=== PATIENT | male | born 1975 | race Two or more races ===

== ENCOUNTER 2018-05-10 12:00 | Inpatient (IN) | payer OTHER ==
[2018-05-10 12:15] VITALS: BMI 24.0
--- NOTE | 2018-05-10 14:23 | HP ---
COWS - Scale Resting Pulse: 0= [place] 80 or Below Sweatin= Chills/Flushing Restless Observation: 1= Difficult to Sit Still Pupil Size: 1= Pupils >than Normal Bone or Joint Aches: 2= Severe Diffuse Aches Runny Nose/ Eye Tearin= Runny Nose/Eyes GI Upset > 30mins: 2= Nausea/Diarrhea Tremor Observation: 2= Slight Tremor Visible Yawning Observation: 2= >3x During Session Anxiety or Irritability: 2=Irritable/Anxious Goose Flesh Skin: 0=Smooth Skin COWS Score: 15 CIWA Score - Admission Criteria OASAS Guidelines: Admission for Medically Managed Detox: Requires at least one of the followin. CIWA greater than 12 2. Seizures within the past 24 hours 3. Delirium tremens within the past 24 hours 4. Hallucinations within the past 24 hours 5. Acute intervention needed for co occurring medical disorder 6. Acute intervention needed for co occurring psychiatric disorder 7. Severe withdrawal that cannot be handled at a lower level of care (continued vomiting, continued diarrhea, abnormal vital signs) requiring intravenous medication and/or fluids 8. Admission ROS [facility] Chief Complaint: i need help to stop using heroin and cocaine Allergies/Adverse Reactions: Allergies Allergy/AdvReac Type Severity Reaction Status Date / Time cefazolin sodium [From [facility]] Allergy Severe Swelling & Verified 05/10/18 13:34 HIVES mustard Allergy Mild Hives Uncoded 05/10/18 13:34 SEAFOOD Allergy Mild Hives Uncoded 05/10/18 13:34 History of Present Illness: this 42 years old male with heroin and cocaine with seeking detox,withdrawal symptom,last detox [facility] in 2013 hepatitis c treated nicotine dependence weight loss longest period of sobriety 4 years and 2 months bipolar disorder,ptsd not on atif medication plan for rehab Exam Limitations: No Limitations - Ebola screening Have you traveled outside of the country in the last 21 days: No Have you been sick,other than usual withdrawal symptoms: No - Review of Systems Constitutional: Chills, Loss of Appetite, Malaise, Changes in sleep, Weakness, Unintentional Wgt. Loss EENT: reports: Tearing, Nose Congestion Respiratory: reports: No Symptoms reported Cardiac: reports: No Symptoms Reported GI: reports: Diarrhea, Nausea, Poor Appetite, Abdominal cramping : reports: No Symptoms Reported Musculoskeletal: reports: No Symptoms Reported, Back Pain, Joint Pain, Muscle Pain Integumentary: reports: Dryness Endocrine: reports: No Symptoms Reported Hematology: reports: No Symptoms Reported Psychiatric: reports: No Sypmtoms Reported, Judgement Intact, Mood/Affect Appropiate, Orientated x3, Anxious, Depressed (insomnia,bipolar disorder) Patient History - Patient Medical History Hx Anemia: No Hx Asthma: No Hx Chronic Obstructive Pulmonary Disease (COPD): No Hx Cancer: No Hx Cardiac Disorders: No Hx Congestive Heart Failure: No Hx Hypertension: No Hx Hypercholesterolemia: No Hx Pacemaker: No HX Cerebrovascular Accident: No Hx Seizures: No Hx Dementia: No Hx Diabetes: No Hx Gastrointestinal Disorders: No Hx Liver Disease: No Hx Genitourinary Disorders: No Hx Sexually Transmitted Disorders: Yes (HERPES) Hx Renal Disease (ESRD): No Hx Thyroid Disease: No Hx Human Immunodeficiency Virus (HIV): No (jan 2012- negative) Hx Hepatitis C: Yes (tx with inf and ribavirin x 6m) Hx Depression: Yes (anxiety,insomnia) Hx Suicide Attempt: No Hx Bipolar Disorder: No Hx Schizophrenia: No Other Medical History: no suicidal,no homicidal - Patient Surgical History Past Surgical History: No Hx Neurologic Surgery: No Hx Cataract Extraction: No Hx Cardiac Surgery: No Hx Lung Surgery: No Hx Breast Surgery: No Hx Breast Biopsy: No Hx Abdominal Surgery: No Hx Appendectomy: No Hx Cholecystectomy: No Hx Genitourinary Surgery: No Hx Section: No Hx Orthopedic Surgery: No Anesthesia Reaction: No - PPD History Previous Implant?: Yes Documented Results: Negative w/proof Implanted On Prior [facility] Admission?: Yes Date: 05/02/12 Results: 0MM PPD to be Administered?: Yes - Smoking Cessation Smoking history: Current every day smoker Have you smoked in the past 12 months: Yes Aproximately how many cigarettes per day: 20 Cigars Per Day: 0 Hx Chewing Tobacco Use: No Initiated information on smoking cessation: Yes 'Breaking Loose' booklet given: 05/10/18 - Substance & Tx. History Hx Alcohol Use: No Hx Substance Use: Yes Substance Use Type: Cocaine, Heroin Hx Substance Use Treatment: Yes (last 2013 [facility]) - Substances Abused Heroin Route: Injection Frequency: Daily Amount used: $50-$60 Age of first use: 22 Date of Last Use: 05/09/18 Cocaine Route: Injection Frequency: 3-6 times per week Amount used: $40 Age of first use: 14 Date of Last Use: 05/06/18 Family Disease History - Family Disease History Family Disease History: Other: Father (dsa,alcohol,), Mother (dsa) Admission Physical Exam [facility] - Vital Signs Vital Signs: Vital Signs - 24 hr 05/10/18 12:13 Temperature 97.7 F Pulse Rate 64 Respiratory 18 Rate Blood Pressure 131/78 - Physical General Appearance: Yes: Moderate Distress, Tremorous, Irritable, Sweating, Anxious HEENTM: Yes: Normal ENT Inspection, Normocephalic, Normal Voice, DAMION, Pharynx Normal, Other (abrasion of scalp) Respiratory: Yes: Lungs Clear, Normal Breath Sounds, No Respiratory Distress Neck: Yes: Within Normal Limits, Supple, Trachea in good position Breast: Yes: Within Normal Limits Cardiology: Yes: Within Normal Limits, Regular Rhythm, Regular Rate, S1, S2 Abdominal: Yes: Within Normal Limits, Normal Bowel Sounds, Non Tender, Soft, Organomegaly Genitourinary: Yes: Within Normal Limits Back: Yes: Muscle Spasm Musculoskeletal: Yes: Back pain, Muscle Pain Extremities: Yes: Tremors 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: 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, Fully Oriented, Alert, Motor Strength 5/5 Integumentary: Yes: Dry, Track Alexander Lymphatic: Yes: Within Normal Limits - Diagnostic (1) Opioid dependence with withdrawal Current Visit: Yes Status: Acute (2) Cocaine dependence Current Visit: No Status: Active (3) Nicotine dependence Current Visit: No Status: Active (4) hep.c Current Visit: No Status: Active (5) Weight loss Current Visit: Yes Status: Acute (6) Abrasion head Current Visit: Yes Status: Acute (7) Insomnia secondary to depression with anxiety Current Visit: Yes Status: Acute (8) Bipolar disorder Current Visit: Yes Status: Acute Cleared for Admission [facility] - Detox or Rehab [facility] Level of Care: Medically Managed Detox Regimen/Protocol: Methadone [facility] Breath Alcohol Content Breath Alcohol Content: 0 Urine Drug Screen - Results Drug Screen Negative: No Urine Drug Screen Results: OPI-Opiates, BZO-Benzodiazepines, FEN-Fentanyl
[2018-05-10] MEDS ORDERED: guaiFENesin/D-METHORPHAN HB 10 ML UNIT-DOSE CUPS PO PRN (14:33)
[2018-05-10] MEDS ORDERED: LOPERAMIDE HCL 2 MG CAPSULE PO PRN (14:33)
[2018-05-10] MEDS ORDERED: MAGNESIUM HYDROX 2400MG/30ML ORAL SUSPENSION 30 ML CUP PO PRN (14:33)
[2018-05-10] MEDS ORDERED: P-EPHED 60MG/TRIPROLIDI 2.5MG TABLET PO PRN (14:33)
[2018-05-10] MEDS ORDERED: MAG HYDROX/AL HYDROX/SIMETH 30 ML UNIT-DOSE CUP PO PRN (14:33)
[2018-05-10] MEDS ORDERED: MAGNESIUM CITRATE 300 ML BOTTLE PO PRN (14:33)
[2018-05-10] MEDS ORDERED: NICOTINE POLACRILEX 2 MG GUM BUC PRN (14:33)
[2018-05-10] MEDS ORDERED: IBUPROFEN 400 MG TABLET (FP) PO PRN (14:33)
[2018-05-10] MEDS ORDERED: MENTHOL/PHENOL 1 EACH UD MM PRN (14:33)
[2018-05-10] MEDS ORDERED: ACETAMINOPHEN 325 MG TABLET (FP) PO PRN (14:33)
[2018-05-10] MEDS ORDERED: hydrOXYzine PAMOATE 25 MG CAPSULE (FP) PO PRN (14:33)
[2018-05-10] MEDS ORDERED: METHADONE HCL 10 MG TABLET (FOR DETOX USE ONLY) PO ONE ×2 (14:45→23:00)
[2018-05-10] MEDS: NICOTINE 21 MG/24 HOURS TOPICAL PATCH TD SCH (15:49)
[2018-05-10] MEDS: MELATONIN 5 MG TABLETS PO PRN (22:45)
[2018-05-10] MEDS: THIAMINE HCL 100 MG TABLET (FP) PO SCH (22:45)
[2018-05-10 23:02] LABS: URINE APPEARANCE CLEAR; URINE BILIRUBIN NEGATIVE (<2.0 mg/dL); URINE COLOR YELLOW; URINE GLUCOSE (UA) NEGATIVE (NEGATIVE); URINE KETONE NEGATIVE (NEGATIVE); URINE LEUK ESTERASE NEGATIVE (NEGATIVE); URINE NITRITE NEGATIVE (NEGATIVE); URINE PROTEIN NEGATIVE (NEGATIVE); URINE UROBILINOGEN NEGATIVE mg/dL (0.2-1.0)
[2018-05-11] MEDS ORDERED: METHADONE HCL 10 MG TABLET (FOR DETOX USE ONLY) PO ONE (10:00)
[2018-05-11] MEDS: diazePAM 5 MG TABLET PO PRN ×2 (10:10→22:08)
[2018-05-11] MEDS: PRENATAL VITAMINS W/ FOLIC ACID TABLET (FP) PO SCH (10:10)
[2018-05-11] MEDS: NICOTINE 21 MG/24 HOURS TOPICAL PATCH TD SCH (10:12)
--- NOTE | 2018-05-11 11:48 | PN ---
BHS COWS - Scale Resting Pulse: 0= [place] 80 or Below Sweatin=Flushed/Facial Moisture Restless Observation: 1= Difficult to Sit Still Pupil Size: 0= Normal to Room Light Bone or Joint Aches: 1= Mild Discomfort Runny Nose/ Eye Tearin= Runny Nose/Eyes GI Upset > 30mins: 0= None Tremor Observation of Outstretched Hands: 2= Slight Tremor Visible Yawning Observation: 2= >3x During Session Anxiety or Irritability: 2=Irritable/Anxious Goose Flesh Skin: 0=Smooth Skin COWS Score: 12 BHS Progress Note (SOAP) Subjective: sweats shakes tired interrupted sleep body aches anxiety Objective: 05/11/18 11:47 Vital Signs Temperature 97.9 F 05/11/18 09:35 Pulse Rate 62 05/11/18 09:35 Respiratory Rate 16 05/11/18 09:35 Blood Pressure 110/64 05/11/18 09:35 O2 Sat by Pulse Oximetry (%) Laboratory Tests 05/10/18 22:00 Urine Color Yellow Urine Appearance Clear Urine pH 5.0 Ur Specific [place] 1.021 Urine Protein Negative Urine Glucose (UA) Negative Urine Ketones Negative Urine Blood Negative Urine Nitrite Negative Urine Bilirubin Negative Urine Urobilinogen Negative Ur Leukocyte Esterase Negative rest of labs pending aaox3 ambulating no acute distress Assessment: 05/11/18 11:48 withdrawal sx Plan: continue detox increase fluids
[2018-05-11 12:02] LABS: HEMATOCRIT 44.8 % (35.4-49); HEMOGLOBIN 14.4 GM/dL (11.7-16.9); MCH 27.7 pg (25.7-33.7); MCHC 32.1 g/dl (32.0-35.9); MEAN CELL VOLUME 86.4 fl (80-96); MEAN PLT VOLUME 10.1 fl (7.5-11.1); PLATELET COUNT 180 K/MM3 (134-434); RBC 5.19 M/mm3 (4.00-5.60); RDW 12.8 % (11.9-15.9); WHITE BLOOD COUNT 5.7 K/mm3 (4.0-10.0)
[2018-05-11 12:07] LABS: ALBUMIN 3.3 g/dl (3.4-5.0); ALK PHOS 72 U/L (45-117); ANION GAP 5 MMOL/L (8-16); BILIRUBIN,TOTAL 0.4 mg/dL (0.2-1); BLOOD UREA NITROGEN 12 mg/dL (7-18); CALCIUM 8.2 mg/dL (8.5-10.1); CHLORIDE 101 mmol/L (98-107); CO2 31 mmol/L (21-32); CREATININE 0.7 mg/dL (0.55-1.3); GLUCOSE,RANDOM 79 mg/dL (74-106); POTASSIUM 4.3 mmol/L (3.5-5.1); SGOT/AST 36 U/L (15-37); SGPT/ALT 51 U/L (13-61); SODIUM 137 mmol/L (136-145); TOT PROT 6.4 g/dl (6.4-8.2)
--- NOTE | 2018-05-11 12:13 | EKG ---
Test Reason : Blood Pressure : / mmHG Vent. Rate : 055 BPM Atrial Rate : 055 BPM P-R Int : 134 ms QRS Dur : 106 ms QT Int : 440 ms P-R-T Axes : 058 042 047 degrees QTc Int : 420 ms SINUS BRADYCARDIA INCOMPLETE RIGHT BUNDLE BRANCH BLOCK BORDERLINE ECG NO PREVIOUS ECGS AVAILABLE Confirmed by HECTOR FARR MD ([id number]) on 05/11/2018 12:13:11 PM Referred By: Confirmed By:HECTOR FARR MD
[2018-05-11] MEDS ORDERED: FLU VACCINE QUAD 60 MCG/0.5 ML (MDV 18-19) IM ONE (13:00)
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
[2018-05-11] MEDS: THIAMINE HCL 100 MG TABLET (FP) PO SCH (22:07)
[2018-05-11] MEDS: MIRTAZAPINE 15 MG TABLET (FP) PO SCH (22:07)
[2018-05-11] MEDS: MELATONIN 5 MG TABLETS PO PRN (22:08)
[2018-05-12] MEDS ORDERED: METHADONE HCL 5 MG TABLET (FOR DETOX USE ONLY) PO ONE (10:00)
--- NOTE | 2018-05-12 10:10 | PN ---
BHS COWS - Scale Resting Pulse: 0= [place] 80 or Below Sweatin= Chills/Flushing Restless Observation: 1= Difficult to Sit Still Pupil Size: 1= Pupils >than Normal Bone or Joint Aches: 2= Severe Diffuse Aches Runny Nose/ Eye Tearin= Nasal Congestion GI Upset > 30mins: 1= Stomach Cramp Tremor Observation of Outstretched Hands: 1= Tremor [place], Not Seen Yawning Observation: 1= 1-2x During Session Anxiety or Irritability: 1=Feels Anxious/Irritable Goose Flesh Skin: 0=Smooth Skin COWS Score: 10 S Progress Note (SOAP) Subjective: sweat tremor body aches muscle cramp joints pain anxiety restlessness Objective: 05/12/18 10:11 Vital Signs Temperature 98.2 F 05/12/18 09:31 Pulse Rate 55 L 05/12/18 09:31 Respiratory Rate 16 05/12/18 09:31 Blood Pressure 114/58 L 05/12/18 09:31 O2 Sat by Pulse Oximetry (%) Laboratory Last Values WBC 5.7 K/mm3 (4.0-10.0) 05/11/18 08:00 RBC 5.19 M/mm3 (4.00-5.60) 05/11/18 08:00 Hgb 14.4 GM/dL (11.7-16.9) 05/11/18 08:00 Hct 44.8 % (35.4-49) D 05/11/18 08:00 MCV 86.4 fl (80-96) 05/11/18 08:00 MCH 27.7 pg (25.7-33.7) 05/11/18 08:00 MCHC 32.1 g/dl (32.0-35.9) 05/11/18 08:00 RDW 12.8 % (11.9-15.9) 05/11/18 08:00 Plt Count 180 K/MM3 (134-434) 05/11/18 08:00 MPV 10.1 fl (7.5-11.1) 05/11/18 08:00 Sodium 137 mmol/L (136-145) 05/11/18 07:50 Potassium 4.3 mmol/L (3.5-5.1) 05/11/18 07:50 Chloride 101 mmol/L (98-107) 05/11/18 07:50 Carbon Dioxide 31 mmol/L (21-32) 05/11/18 07:50 Anion Gap 5 MMOL/L (8-16) L 05/11/18 07:50 BUN 12 mg/dL (7-18) 05/11/18 07:50 Creatinine 0.7 mg/dL (0.55-1.3) 05/11/18 07:50 Creat Clearance w eGFR > 60 (>60) 05/11/18 07:50 Random Glucose 79 mg/dL (74-106) 05/11/18 07:50 Calcium 8.2 mg/dL (8.5-10.1) L 05/11/18 07:50 Total Bilirubin 0.4 mg/dL (0.2-1) 05/11/18 07:50 AST 36 U/L (15-37) 05/11/18 07:50 ALT 51 U/L (13-61) 05/11/18 07:50 Alkaline Phosphatase 72 U/L (45-117) 05/11/18 07:50 Total Protein 6.4 g/dl (6.4-8.2) 05/11/18 07:50 Albumin 3.3 g/dl (3.4-5.0) L 05/11/18 07:50 Urine Color Yellow 05/10/18 22:00 Urine Appearance Clear 05/10/18 22:00 Urine pH 5.0 (5.0-8.0) 05/10/18 22:00 Ur Specific [place] 1.021 (1.010-1.035) 05/10/18 22:00 Urine Protein Negative (NEGATIVE) 05/10/18 22:00 Urine Glucose (UA) Negative (NEGATIVE) 05/10/18 22:00 Urine Ketones Negative (NEGATIVE) 05/10/18 22:00 Urine Blood Negative (NEGATIVE) 05/10/18 22:00 Urine Nitrite Negative (NEGATIVE) 05/10/18 22:00 Urine Bilirubin Negative (<2.0 mg/dL) 05/10/18 22:00 Urine Urobilinogen Negative mg/dL (0.2-1.0) 05/10/18 22:00 Ur Leukocyte Esterase Negative (NEGATIVE) 05/10/18 22:00 RPR Titer Nonreactive (NONREACTIVE) 05/11/18 07:50 HIV 1&2 Antibody Screen Negative 05/11/18 07:50 HIV P24 Antigen Negative 05/11/18 07:50 lab noted Assessment: 05/12/18 10:12 withdrawal sx Plan: continue detox
[2018-05-12] MEDS: NICOTINE 21 MG/24 HOURS TOPICAL PATCH TD SCH (10:21)
[2018-05-12] MEDS: diazePAM 5 MG TABLET PO PRN ×2 (10:21→22:00)
[2018-05-12] MEDS: PRENATAL VITAMINS W/ FOLIC ACID TABLET (FP) PO SCH (10:21)
[2018-05-12] MEDS: THIAMINE HCL 100 MG TABLET (FP) PO SCH (22:00)
[2018-05-12] MEDS: MIRTAZAPINE 15 MG TABLET (FP) PO SCH (22:00)
[2018-05-12] MEDS: MELATONIN 5 MG TABLETS PO PRN (22:01)
[2018-05-13] MEDS ORDERED: METHADONE HCL 5 MG TABLET (FOR DETOX USE ONLY) PO ONE (10:00)
[2018-05-13] MEDS: NICOTINE 21 MG/24 HOURS TOPICAL PATCH TD SCH (10:08)
[2018-05-13] MEDS: PRENATAL VITAMINS W/ FOLIC ACID TABLET (FP) PO SCH (10:08)
--- NOTE | 2018-05-13 10:15 | PN ---
BHS Progress Note (SOAP) Subjective: sweats agitation Objective: 05/14/18 08:47 Vital Signs Temperature 97.5 F L 05/14/18 07:27 Pulse Rate 48 L 05/14/18 07:27 Respiratory Rate 18 05/14/18 07:27 Blood Pressure 126/74 05/14/18 07:27 O2 Sat by Pulse Oximetry (%) aaox3 ambulating no acute distress Assessment: 05/14/18 08:48 mild withdrawal sx Plan: continue detox
[2018-05-13] MEDS: MIRTAZAPINE 15 MG TABLET (FP) PO SCH (22:17)
[2018-05-13] MEDS: THIAMINE HCL 100 MG TABLET (FP) PO SCH (22:17)
[2018-05-13] MEDS: MELATONIN 5 MG TABLETS PO PRN (22:17)
[2018-05-14] MEDS ORDERED: METHADONE HCL 10 MG TABLET (FOR DETOX USE ONLY) PO ONE (10:00)
[2018-05-14] MEDS: NICOTINE 21 MG/24 HOURS TOPICAL PATCH TD SCH (10:30)
[2018-05-14] MEDS: PRENATAL VITAMINS W/ FOLIC ACID TABLET (FP) PO SCH (10:30)
--- NOTE | 2018-05-14 11:02 | PN ---
BHS Progress Note (SOAP) Subjective: feeling good little anxiety Objective: 05/14/18 11:01 Vital Signs Temperature 98.2 F 05/14/18 09:28 Pulse Rate 60 05/14/18 09:28 Respiratory Rate 18 05/14/18 09:28 Blood Pressure 118/59 L 05/14/18 09:28 O2 Sat by Pulse Oximetry (%) aaox3 ambulating no acute distress Assessment: 05/14/18 11:01 mild withdrawal sx Plan: continue detox increase fluids d/c in am
[2018-05-14] MEDS: MELATONIN 5 MG TABLETS PO PRN (22:13)
[2018-05-14] MEDS: MIRTAZAPINE 15 MG TABLET (FP) PO SCH (22:13)
[2018-05-14] MEDS: THIAMINE HCL 100 MG TABLET (FP) PO SCH (22:13)
[2018-05-15] MEDS ORDERED: METHADONE HCL 5 MG TABLET (FOR DETOX USE ONLY) PO ONE (06:00)
[2018-05-15 09:15] VITALS: BP 137/63; PULSE 85; TEMP 98.4
--- NOTE | 2018-05-15 09:16 | DS ---
[facility] Detox Discharge Summary Admission Date: 05/10/18 Discharge Date: 05/15/18 - History Present History: Opioid Dependence - Physical Exam Results Vital Signs: Vital Signs Temperature 98.4 F 05/15/18 09:15 Pulse Rate 85 05/15/18 09:15 Respiratory Rate 18 05/15/18 09:15 Blood Pressure 137/63 05/15/18 09:15 O2 Sat by Pulse Oximetry (%) - Treatment Hospital Course: Detox Protocol Followed, Detoxed Safely, Responded well, Discharged Condition Good, Rehab Referral Accepted - Medication Discharge Medications: Ambulatory Orders NK [No Known Home Medication] 05/10/18 - Diagnosis (1) Cocaine dependence Current Visit: Yes Status: Acute (2) Nicotine dependence Current Visit: Yes Status: Active (3) Bipolar disorder Current Visit: Yes Status: Acute (4) Insomnia secondary to depression with anxiety Current Visit: Yes Status: Acute (5) Opioid dependence with withdrawal Current Visit: Yes Status: Chronic (6) Post traumatic stress disorder (PTSD) Current Visit: Yes Status: Acute (7) Substance induced mood disorder Current Visit: Yes Status: Acute (8) hep.c Current Visit: No Status: Chronic - AMA Did Patient Leave Against Medical Advice: No (referred to [facility])
== END 2018-05-15 09:21 | disposition home or self-care (01) | DRG 773 ==
LOC: YASAS 12:00 → Y6N 14:33
PROVIDERS: ADMIT Neuromusculoskeletal Medicine & OMM; ATTEND Neuromusculoskeletal Medicine & OMM
PROC: HZ2ZZZZ Detoxification Services for Substance Abuse Treatment (ICD-10-PCS; principal; 2018-05-10)
DX: F11.23 Opioid dependence with withdrawal (principal); F14.20 Cocaine dependence, uncomplicated; F17.210 Nicotine dependence, cigarettes, uncomplicated; F31.9 Bipolar disorder, unspecified; F51.05 Insomnia due to other mental disorder; F43.10 Post-traumatic stress disorder, unspecified; F19.24 Other psychoactive substance dependence with psychoactive substance-induced mood disorder; B18.2 Chronic viral hepatitis C; Z88.8 Allergy status to other drugs, medicaments and biological substances; Z91.013 Allergy to seafood; Z87.438 Personal history of other diseases of male genital organs; Z59.0 Homelessness
CPT/HCPCS: 36415; 80053; 81003; 85027; 86593; 87389; 90688; 93005; 93010; G0008

== ENCOUNTER 2019-01-09 13:13 | Inpatient (IN) | payer OTHER | END 2019-01-11 17:45 | disposition home or self-care (01) | LOC: YASAS 13:13 → Y3N 18:16 ==

== ENCOUNTER 2019-04-21 11:25 | Inpatient (IN) | payer OTHER ==
[2019-04-21 12:25] VITALS: BMI 22.8
--- NOTE | 2019-04-21 13:48 | HP ---
COWS - Scale Resting Pulse: 0= [place] 80 or Below Sweatin= Chills/Flushing Restless Observation: 1= Difficult to Sit Still Pupil Size: 0= Normal to Room Light Bone or Joint Aches: 2= Severe Diffuse Aches Runny Nose/ Eye Tearin= Runny Nose/Eyes GI Upset > 30mins: 2= Nausea/Diarrhea Tremor Observation: 2= Slight Tremor Visible Yawning Observation: 2= >3x During Session Anxiety or Irritability: 2=Irritable/Anxious Goose Flesh Skin: 3=Piloerection COWS Score: 17 CIWA Score - Admission Criteria OASAS Guidelines: Admission for Medically Managed Detox: Requires at least one of the followin. CIWA greater than 12 2. Seizures within the past 24 hours 3. Delirium tremens within the past 24 hours 4. Hallucinations within the past 24 hours 5. Acute intervention needed for co occurring medical disorder 6. Acute intervention needed for co occurring psychiatric disorder 7. Severe withdrawal that cannot be handled at a lower level of care (continued vomiting, continued diarrhea, abnormal vital signs) requiring intravenous medication and/or fluids 8. Admitting History and Physical - Primary Care Physician PCP: ([facility] [place]) - Admission Chief Complaint: I am here to detox. History Source: Patient Limitations to Obtaining History: No Limitations - Past Medical History Hepatobiliary: Yes: Hepatitis C Infectious Disease: Yes: STD's (gential herpes no outbreak in two years) Psych: Yes: Depression, Other (PTSD) Musculoskeletal: Yes: Chronic low back pain - Past Surgical History Past Surgical History: Yes: None - Smoking History Smoking history: Current every day smoker Have you smoked in the past 12 months: Yes Aproximately how many cigarettes per day: 20 - Alcohol/Substance Use Hx Alcohol Use: No - Social History Usual Living Arrangement: Yes: Alone Do you think of yourself as: Straight/Heterosexual ADL: Independent History of Recent Travel: No Admission ROS [facility] - HPI Chief Complaint: I am here for detox. Allergies/Adverse Reactions: Allergies Allergy/AdvReac Type Severity Reaction Status Date / Time cefazolin sodium [From [facility]] Allergy Severe Swelling & Verified 04/21/19 12:20 HIVES fish derived Allergy Verified 04/21/19 12:20 shellfish derived Allergy Verified 04/21/19 12:20 mustard Allergy Mild Hives Uncoded 04/21/19 12:20 SEAFOOD Allergy Mild Hives Uncoded 04/21/19 12:20 History of Present Illness: pt is a 43yr old male with a history of heroin and cocaine dependence seeking detox for treatment. Exam Limitations: No Limitations - Ebola screening Have you traveled outside of the country in the last 21 days: No Have you had contact with anyone from an Ebola affected area: No Have you been sick,other than usual withdrawal symptoms: No - Review of Systems Constitutional: Chills, Night Sweats, Changes in sleep EENT: reports: Tearing Respiratory: reports: No Symptoms reported Cardiac: reports: No Symptoms Reported GI: reports: Diarrhea, Poor Appetite, Poor Fluid Intake : reports: No Symptoms Reported Musculoskeletal: reports: Back Pain Integumentary: reports: Flushing, Sweating Neuro: reports: Tingling, Tremors Endocrine: reports: Excessive Sweating, Flushing, Intolerance to Cold, Intolerance to Heat Hematology: reports: No Symptoms Reported Psychiatric: reports: Judgement Intact, Mood/Affect Appropiate, Orientated x3, Agitated, Anxious Other Systems: Reviewed and Negative Patient History - Patient Medical History Hx Anemia: No Hx Asthma: No Hx Chronic Obstructive Pulmonary Disease (COPD): No Hx Cancer: No Hx Cardiac Disorders: No Hx Congestive Heart Failure: No Hx Hypertension: No Hx Hypercholesterolemia: No Hx Pacemaker: No HX Cerebrovascular Accident: No Hx Seizures: No Hx Dementia: No Hx Diabetes: No Hx Gastrointestinal Disorders: No Hx Liver Disease: No Hx Genitourinary Disorders: No Hx Sexually Transmitted Disorders: Yes (HERPES) Hx Renal Disease (ESRD): No Hx Thyroid Disease: No Hx Human Immunodeficiency Virus (HIV): No (jan 2012- negative) Hx Hepatitis C: Yes (tx with inf and ribavirin x 6m) Hx Depression: Yes (not taking medication) Hx Suicide Attempt: No Hx Bipolar Disorder: No Hx Schizophrenia: No Other Medical History: PTSD - Patient Surgical History Past Surgical History: No Hx Neurologic Surgery: No Hx Cataract Extraction: No Hx Cardiac Surgery: No Hx Lung Surgery: No Hx Breast Surgery: No Hx Breast Biopsy: No Hx Abdominal Surgery: No Hx Appendectomy: No Hx Cholecystectomy: No Hx Genitourinary Surgery: No Hx Section: No Hx Orthopedic Surgery: No Anesthesia Reaction: No - PPD History Previous Implant?: Yes Documented Results: Negative w/proof Date: 05/12/18 Results: 0MM PPD to be Administered?: No - Reproductive History Patient is a Female of Child Bearing Age (11 -55 yrs old): No - Smoking Cessation Smoking history: Current every day smoker Have you smoked in the past 12 months: Yes Aproximately how many cigarettes per day: 20 Cigars Per Day: 0 Hx Chewing Tobacco Use: No Initiated information on smoking cessation: Yes 'Breaking Loose' booklet given: 04/21/19 - Substance & Tx. History Hx Alcohol Use: No Hx Substance Use: Yes Substance Use Type: Cocaine, Heroin Hx Substance Use Treatment: Yes (last detox 12/2018) - Substances abused Heroin Substance route: Injection Frequency: Daily Amount used: 15-20 bags Age of first use: 21 Date of last use: 04/21/19 Cocaine Substance route: Injection Frequency: Daily Amount used: $60 Age of first use: 14 Date of last use: 04/20/19 Marijuana/Hashish Substance route: Smoking Frequency: 1-3 times last 30 days Amount used: 2-3 pulls Age of first use: 17 Date of last use: 01/09/19 Admission Physical Exam S - Vital Signs Vital Signs: Vital Signs - 24 hr 04/21/19 12:22 Temperature 97.3 F L Pulse Rate 50 L Respiratory 18 Rate Blood Pressure 103/63 - Physical General Appearance: Yes: Appropriately Dressed, Moderate Distress, Tremorous, Irritable, Sweating, Anxious HEENTM: Yes: Hearing grossly Normal, Normal Voice, Nasal Congestion, Rhinorrhea Respiratory: Yes: Lungs Clear, Normal Breath Sounds, No Respiratory Distress Neck: Yes: No masses,lesions,Nodules Breast: Yes: Within Normal Limits Cardiology: Yes: Regular Rhythm, Regular Rate, S1, S2, Bradycardia Abdominal: Yes: Normal Bowel Sounds, Non Tender, Soft, Increased Bowel Sounds Genitourinary: Yes: Within Normal Limits Back: Yes: Normal Inspection Musculoskeletal: Yes: full range of Motion, Back pain Extremities: Yes: Normal Capillary Refill, Normal Inspection, Non-Tender, Tremors 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: Fully Oriented, Alert, Normal Response Integumentary: Yes: Normal Color, Diaphoresis, Track Alexander Lymphatic: Yes: Within Normal Limits - Diagnostic (1) Nicotine dependence Current Visit: Yes Status: Chronic (2) Opioid dependence with withdrawal Current Visit: Yes Status: Chronic (3) Post traumatic stress disorder (PTSD) Current Visit: No Status: Acute (4) Cocaine dependence Current Visit: Yes Status: Chronic (5) hep.c Current Visit: Yes Status: Chronic Cleared for Admission [facility] - Detox or Rehab [facility] Level of Care: Medically Managed Detox Regimen/Protocol: Methadone Breathalyzer - Breathalyzer Breathalyzer: 0 Urine Drug Screen - Test Device Lot number: [id number] Expiration date: 12/15/20 - Control Is test valid?: Yes - Results Drug screen NEGATIVE: No Urine drug screen results: ANGELLA-Cocaine, FEN-Fentanyl, MOP-Opiates, MTD-Methadone , BZO-Benzodiazepines Inpatient Rehab Admission - Rehab Decision to Admit Inpatient rehab admission?: No
[2019-04-21] MEDS ORDERED: MAGNESIUM CITRATE 300 ML BOTTLE PO PRN (13:54)
[2019-04-21] MEDS ORDERED: ONDANSETRON *ODT* 4 MG TABLET SL PRN (13:54)
[2019-04-21] MEDS ORDERED: hydrOXYzine PAMOATE 25 MG CAPSULE (FP) PO PRN (13:54)
[2019-04-21] MEDS ORDERED: MELATONIN 5 MG TABLETS PO PRN (13:54)
[2019-04-21] MEDS ORDERED: MENTHOL/PHENOL 1 EACH UD MM PRN (13:54)
[2019-04-21] MEDS ORDERED: METHOCARBAMOL 500 MG TABLET PO PRN (13:54)
[2019-04-21] MEDS ORDERED: MAG HYDROX/AL HYDROX/SIMETH 30 ML UNIT-DOSE CUP PO PRN (13:54)
[2019-04-21] MEDS ORDERED: NICOTINE POLACRILEX 4 MG GUM BUC PRN (13:54)
[2019-04-21] MEDS ORDERED: MAGNESIUM HYDROX 2400MG/30ML ORAL SUSPENSION 30 ML CUP PO PRN (13:54)
[2019-04-21] MEDS ORDERED: BISMUTH SUBSALICYLATE 524 MG/30 ML UD PO PRN (13:54)
[2019-04-21] MEDS ORDERED: ACETAMINOPHEN 325 MG TABLET (FP) PO PRN ×2 (13:54)
[2019-04-21] MEDS ORDERED: cloNIDine HCL 0.1 MG TABLET PO PRN (13:54)
[2019-04-21] MEDS ORDERED: IBUPROFEN 400 MG TABLET (FP) PO PRN (13:54)
[2019-04-21 16:09] LABS: HEMATOCRIT 37.2 % (35.4-49); HEMOGLOBIN 12.1 GM/dL (11.7-16.9); MCH 27.5 pg (25.7-33.7); MCHC 32.6 g/dl (32.0-35.9); MEAN CELL VOLUME 84.3 fl (80-96); MEAN PLT VOLUME 9.5 fl (7.5-11.1); PLATELET COUNT 203 K/MM3 (134-434); RBC 4.41 M/mm3 (4.00-5.60); RDW 13.1 % (11.9-15.9); WHITE BLOOD COUNT 6.1 K/mm3 (4.0-10.0)
[2019-04-21 16:28] LABS: BILIRUBIN,TOTAL 0.2 mg/dL (0.2-1); BLOOD UREA NITROGEN 11.4 mg/dL (7-18); CALCIUM 8.2 mg/dL (8.5-10.1); CREATININE 0.8 mg/dL (0.55-1.3); POTASSIUM 4.1 mmol/L (3.5-5.1); TOT PROT 6.3 g/dl (6.4-8.2)
[2019-04-21] MEDS ORDERED: METHADONE HCL 10 MG TABLET (FOR DETOX USE ONLY) PO ONE (16:45)
[2019-04-21] MEDS: diazePAM 5 MG TABLET PO PRN ×2 (17:47→22:05)
[2019-04-21] MEDS: THIAMINE HCL 100 MG TABLET (FP) PO SCH (22:05)
[2019-04-22] MEDS ORDERED: METHADONE HCL 10 MG TABLET (FOR DETOX USE ONLY) ONE (09:36)
[2019-04-22] MEDS ORDERED: METHADONE HCL 5 MG TABLET (FOR DETOX USE ONLY) ONE (09:36)
[2019-04-22] MEDS ORDERED: METHADONE (DETOX) 20 MG, METHADONE (DETOX) 5 MG PO ONE (10:00)
--- NOTE | 2019-04-22 10:27 | PN ---
BHS COWS - Scale Resting Pulse: 0= [place] 80 or Below Sweatin= No chills or Flushing Restless Observation: 1= Difficult to Sit Still Pupil Size: 1= Pupils >than Normal Bone or Joint Aches: 1= Mild Discomfort Runny Nose/ Eye Tearin= Nasal Congestion GI Upset > 30mins: 2= Nausea/Diarrhea Tremor Observation of Outstretched Hands: 2= Slight Tremor Visible Yawning Observation: 1= 1-2x During Session Anxiety or Irritability: 2=Irritable/Anxious Goose Flesh Skin: 0=Smooth Skin COWS Score: 11 BHS Progress Note (SOAP) Subjective: alert,irritable,anxious,interrupted sleep,pain in the body and back Objective: 04/22/19 10:25 Vital Signs Temperature 98.1 F 04/22/19 09:13 Pulse Rate 73 04/22/19 09:13 Respiratory Rate 18 04/22/19 09:13 Blood Pressure 110/74 04/22/19 09:13 O2 Sat by Pulse Oximetry (%) Laboratory Last Values WBC 6.1 K/mm3 (4.0-10.0) 04/21/19 13:40 RBC 4.41 M/mm3 (4.00-5.60) 04/21/19 13:40 Hgb 12.1 GM/dL (11.7-16.9) 04/21/19 13:40 Hct 37.2 % (35.4-49) 04/21/19 13:40 MCV 84.3 fl (80-96) 04/21/19 13:40 MCH 27.5 pg (25.7-33.7) 04/21/19 13:40 MCHC 32.6 g/dl (32.0-35.9) 04/21/19 13:40 RDW 13.1 % (11.9-15.9) 04/21/19 13:40 Plt Count 203 K/MM3 (134-434) 04/21/19 13:40 MPV 9.5 fl (7.5-11.1) 04/21/19 13:40 Sodium 136 mmol/L (136-145) 04/21/19 13:40 Potassium 4.1 mmol/L (3.5-5.1) 04/21/19 13:40 Chloride 101 mmol/L (98-107) 04/21/19 13:40 Carbon Dioxide 31 mmol/L (21-32) 04/21/19 13:40 Anion Gap 4 MMOL/L (8-16) L 04/21/19 13:40 BUN 11.4 mg/dL (7-18) 04/21/19 13:40 Creatinine 0.8 mg/dL (0.55-1.3) 04/21/19 13:40 Est GFR (CKD-EPI)AfAm 125.92 04/21/19 13:40 Est GFR (CKD-EPI)NonAf 108.65 04/21/19 13:40 Random Glucose 84 mg/dL (74-106) 04/21/19 13:40 Calcium 8.2 mg/dL (8.5-10.1) L 04/21/19 13:40 Total Bilirubin 0.2 mg/dL (0.2-1) 04/21/19 13:40 AST 24 U/L (15-37) 04/21/19 13:40 ALT 29 U/L (13-61) 04/21/19 13:40 Alkaline Phosphatase 71 U/L (45-117) 04/21/19 13:40 Total Protein 6.3 g/dl (6.4-8.2) L 04/21/19 13:40 Albumin 3.0 g/dl (3.4-5.0) L 04/21/19 13:40 04/22/19 10:26 rpr pending Assessment: 04/22/19 10:26 withdrawal symptom Plan: continue detox methadone regimen
[2019-04-22] MEDS: PRENATAL VITAMINS W/ FOLIC ACID TABLET (FP) PO SCH (10:28)
[2019-04-22] MEDS: NICOTINE 21 MG/24 HOURS TOPICAL PATCH TD SCH (10:30)
[2019-04-22] MEDS: diazePAM 5 MG TABLET PO PRN ×3 (10:31→22:03)
[2019-04-22] MEDS: THIAMINE HCL 100 MG TABLET (FP) PO SCH (22:02)
[2019-04-23] MEDS: diazePAM 5 MG TABLET PO PRN ×2 (03:10→11:31)
--- NOTE | 2019-04-23 09:42 | PN ---
S CIWA - CIWA Score Nausea/Vomitin-Mild Nausea/No Vomiting Muscle Tremors: 1-None Visible, but [place] Anxiety: 2 Agitation: 2 Paroxysmal Sweats: No Perspiration Orientation: 0-Oriented Tacttile Disturbances: 1-Very Mild Itch/Numbness Auditory Disturbances: 0-None Visual Disturbances: 0-None Headache: 1-Very Mild CIWA-Ar Total Score: 8 BHS Progress Note (SOAP) Subjective: alert,irritable,anxious,interrupted sleep,pain in the body and back Objective: 04/23/19 09:41 Vital Signs Temperature 97.7 F 04/23/19 09:12 Pulse Rate 61 04/23/19 09:12 Respiratory Rate 18 04/23/19 09:12 Blood Pressure 126/74 04/23/19 09:12 O2 Sat by Pulse Oximetry (%) 04/23/19 09:41 Laboratory Last Values WBC 6.1 K/mm3 (4.0-10.0) 04/21/19 13:40 RBC 4.41 M/mm3 (4.00-5.60) 04/21/19 13:40 Hgb 12.1 GM/dL (11.7-16.9) 04/21/19 13:40 Hct 37.2 % (35.4-49) 04/21/19 13:40 MCV 84.3 fl (80-96) 04/21/19 13:40 MCH 27.5 pg (25.7-33.7) 04/21/19 13:40 MCHC 32.6 g/dl (32.0-35.9) 04/21/19 13:40 RDW 13.1 % (11.9-15.9) 04/21/19 13:40 Plt Count 203 K/MM3 (134-434) 04/21/19 13:40 MPV 9.5 fl (7.5-11.1) 04/21/19 13:40 Sodium 136 mmol/L (136-145) 04/21/19 13:40 Potassium 4.1 mmol/L (3.5-5.1) 04/21/19 13:40 Chloride 101 mmol/L (98-107) 04/21/19 13:40 Carbon Dioxide 31 mmol/L (21-32) 04/21/19 13:40 Anion Gap 4 MMOL/L (8-16) L 04/21/19 13:40 BUN 11.4 mg/dL (7-18) 04/21/19 13:40 Creatinine 0.8 mg/dL (0.55-1.3) 04/21/19 13:40 Est GFR (CKD-EPI)AfAm 125.92 04/21/19 13:40 Est GFR (CKD-EPI)NonAf 108.65 04/21/19 13:40 Random Glucose 84 mg/dL (74-106) 04/21/19 13:40 Calcium 8.2 mg/dL (8.5-10.1) L 04/21/19 13:40 Total Bilirubin 0.2 mg/dL (0.2-1) 04/21/19 13:40 AST 24 U/L (15-37) 04/21/19 13:40 ALT 29 U/L (13-61) 04/21/19 13:40 Alkaline Phosphatase 71 U/L (45-117) 04/21/19 13:40 Total Protein 6.3 g/dl (6.4-8.2) L 04/21/19 13:40 Albumin 3.0 g/dl (3.4-5.0) L 04/21/19 13:40 RPR Titer Nonreactive (NONREACTIVE) 04/21/19 13:40 Assessment: 04/23/19 09:42 withdrawal symptom Plan: continue detox methadone regimen
[2019-04-23] MEDS ORDERED: METHADONE HCL 10 MG TABLET (FOR DETOX USE ONLY) PO ONE (10:00)
[2019-04-23] MEDS: NICOTINE 21 MG/24 HOURS TOPICAL PATCH TD SCH (11:34)
[2019-04-23] MEDS: PRENATAL VITAMINS W/ FOLIC ACID TABLET (FP) PO SCH (11:34)
[2019-04-23 13:48] VITALS: BP 134/81; PULSE 74; TEMP 98.4
--- NOTE | 2019-04-23 15:43 | PN ---
[facility] Progress Note Note: patient did not want to complete treatment,high risk of relapsing explained, patient understood, all attempts to convince patient to stay with no avail,patient signed release ama,advise to call 911 if not feeling well
--- NOTE | 2019-04-23 15:46 | DS ---
[facility] Detox Discharge Summary Admission Date: 04/21/19 Discharge Date: 04/23/19 - History Present History: Cocaine Dependence, Opioid Dependence Additional Comments: patient signed release ama Pertinent Past History: hepatitis c ptsd - Physical Exam Results Vital Signs: Vital Signs Temperature 98.4 F 04/23/19 13:47 Pulse Rate 74 04/23/19 13:47 Respiratory Rate 18 04/23/19 13:47 Blood Pressure 134/81 04/23/19 13:47 O2 Sat by Pulse Oximetry (%) Pertinent Admission Physical Exam Findings: withdrawal signs and symptom Vital Signs Temperature 98.4 F 04/23/19 13:47 Pulse Rate 74 04/23/19 13:47 Respiratory Rate 18 04/23/19 13:47 Blood Pressure 134/81 04/23/19 13:47 O2 Sat by Pulse Oximetry (%) Vital Signs Temperature 98.4 F 04/23/19 13:47 Pulse Rate 74 04/23/19 13:47 Respiratory Rate 18 04/23/19 13:47 Blood Pressure 134/81 04/23/19 13:47 O2 Sat by Pulse Oximetry (%) Laboratory Last Values WBC 6.1 K/mm3 (4.0-10.0) 04/21/19 13:40 RBC 4.41 M/mm3 (4.00-5.60) 04/21/19 13:40 Hgb 12.1 GM/dL (11.7-16.9) 04/21/19 13:40 Hct 37.2 % (35.4-49) 04/21/19 13:40 MCV 84.3 fl (80-96) 04/21/19 13:40 MCH 27.5 pg (25.7-33.7) 04/21/19 13:40 MCHC 32.6 g/dl (32.0-35.9) 04/21/19 13:40 RDW 13.1 % (11.9-15.9) 04/21/19 13:40 Plt Count 203 K/MM3 (134-434) 04/21/19 13:40 MPV 9.5 fl (7.5-11.1) 04/21/19 13:40 Sodium 136 mmol/L (136-145) 04/21/19 13:40 Potassium 4.1 mmol/L (3.5-5.1) 04/21/19 13:40 Chloride 101 mmol/L (98-107) 04/21/19 13:40 Carbon Dioxide 31 mmol/L (21-32) 04/21/19 13:40 Anion Gap 4 MMOL/L (8-16) L 04/21/19 13:40 BUN 11.4 mg/dL (7-18) 04/21/19 13:40 Creatinine 0.8 mg/dL (0.55-1.3) 04/21/19 13:40 Est GFR (CKD-EPI)AfAm 125.92 04/21/19 13:40 Est GFR (CKD-EPI)NonAf 108.65 04/21/19 13:40 Random Glucose 84 mg/dL (74-106) 04/21/19 13:40 Calcium 8.2 mg/dL (8.5-10.1) L 04/21/19 13:40 Total Bilirubin 0.2 mg/dL (0.2-1) 04/21/19 13:40 AST 24 U/L (15-37) 04/21/19 13:40 ALT 29 U/L (13-61) 04/21/19 13:40 Alkaline Phosphatase 71 U/L (45-117) 04/21/19 13:40 Total Protein 6.3 g/dl (6.4-8.2) L 04/21/19 13:40 Albumin 3.0 g/dl (3.4-5.0) L 04/21/19 13:40 RPR Titer Nonreactive (NONREACTIVE) 04/21/19 13:40 - Medication Discharge Medications: Ambulatory Orders NK [No Known Home Medication] 05/10/18 - Diagnosis (1) Cocaine dependence Current Visit: Yes Status: Chronic (2) Nicotine dependence Current Visit: Yes Status: Chronic (3) Opioid dependence with withdrawal Current Visit: Yes Status: Chronic (4) hep.c Current Visit: Yes Status: Chronic - AMA Did Patient Leave Against Medical Advice: Yes
[2019-04-24] MEDS ORDERED: METHADONE (DETOX) 10 MG, METHADONE (DETOX) 5 MG PO ONE (10:00)
[2019-04-25] MEDS ORDERED: METHADONE HCL 10 MG TABLET (FOR DETOX USE ONLY) PO ONE (10:00)
[2019-04-26] MEDS ORDERED: METHADONE HCL 5 MG TABLET (FOR DETOX USE ONLY) PO ONE (06:00)
== END 2019-04-23 15:46 | disposition left against medical advice (07) | DRG 770 ==
LOC: YASAS 11:25 → Y6N 16:49
PROVIDERS: ADMIT Allergy & Immunology; ATTEND Allergy & Immunology
PROC: HZ2ZZZZ Detoxification Services for Substance Abuse Treatment (ICD-10-PCS; principal; 2019-04-21)
DX: F11.23 Opioid dependence with withdrawal (principal); F14.20 Cocaine dependence, uncomplicated; F17.210 Nicotine dependence, cigarettes, uncomplicated; F32.9 Major depressive disorder, single episode, unspecified; F90.9 Attention-deficit hyperactivity disorder, unspecified type; B18.2 Chronic viral hepatitis C; M54.5 Low back pain; G89.29 Other chronic pain; Z86.19 Personal history of other infectious and parasitic diseases; Z88.1 Allergy status to other antibiotic agents; Z91.013 Allergy to seafood; Z59.0 Homelessness
CPT/HCPCS: 36415; 80053; 85027; 86593

== ENCOUNTER 2019-07-28 16:42 | Inpatient (IN) | payer OTHER ==
[2019-07-28 20:22] VITALS: BMI 21.9
--- NOTE | 2019-07-28 22:36 | HP ---
COWS - Scale Resting Pulse: 1= [place] 81-100 Sweatin= Chills/Flushing Restless Observation: 1= Difficult to Sit Still Pupil Size: 1= Pupils >than Normal Bone or Joint Aches: 4=Acute Joint/Muscle Pain Runny Nose/ Eye Tearin= Nasal Congestion GI Upset > 30mins: 2= Nausea/Diarrhea (diarrhea x 3) Tremor Observation: 4= Gross Tremor/Twitching Yawning Observation: 0= None Anxiety or Irritability: 2=Irritable/Anxious Goose Flesh Skin: 0=Smooth Skin COWS Score: 17 CIWA Score Nausea/Vomitin-Mild Nausea/No Vomiting Muscle Tremors: 4-Moderate,w/Arms Extend Anxiety: 4-Mod. Anxious/Guarded Agitation: 2 Paroxysmal Sweats: 3 Orientation: 0-Oriented Tacttile Disturbances: 0-None Auditory Disturbances: 0-None Visual Disturbances: 0-None Headache: 2-Mild CIWA-Ar Total Score: 16 - Admission Criteria OASAS Guidelines: Admission for Medically Managed Detox: Requires at least one of the followin. CIWA greater than 12 2. Seizures within the past 24 hours 3. Delirium tremens within the past 24 hours 4. Hallucinations within the past 24 hours 5. Acute intervention needed for co occurring medical disorder 6. Acute intervention needed for co occurring psychiatric disorder 7. Severe withdrawal that cannot be handled at a lower level of care (continued vomiting, continued diarrhea, abnormal vital signs) requiring intravenous medication and/or fluids 8. Admitting History and Physical - Past Medical History Hepatobiliary: Yes: Hepatitis C Infectious Disease: Yes: STD's (gential herpes no outbreak in two years) Psych: Yes: Depression, Other (PTSD) Musculoskeletal: Yes: Chronic low back pain - Past Surgical History Past Surgical History: Yes: None - Smoking History Smoking history: Current every day smoker Have you smoked in the past 12 months: Yes Aproximately how many cigarettes per day: 20 - Alcohol/Substance Use Hx Alcohol Use: No - Social History ADL: Independent History of Recent Travel: No Admission ROS [facility] - [facility] Chief Complaint: Heroin and alcohol withdrawal symptoms Allergies/Adverse Reactions: Allergies Allergy/AdvReac Type Severity Reaction Status Date / Time cefazolin sodium [From Anc] Allergy Severe Swelling & Verified 07/28/19 20:13 HIVES fish derived Allergy Verified 07/28/19 20:13 shellfish derived Allergy Verified 07/28/19 20:13 mustard Allergy Mild Hives Uncoded 07/28/19 20:13 SEAFOOD Allergy Mild Hives Uncoded 07/28/19 20:13 History of Present Illness: 43 years old male with 23 years of heroin and 12 years of heroin dependence is seeking admission to detox. Patient reports multiple detox admissions, last at [facility]. His last admission to [facility] was for the period 04/21/2019- 04/23/2019. Patient had left against medical advice for the past 2 admissions. Risks and consequences of not completing detox reinforced.Patient signed the treatment contract and promised to complete this admission. He has medical history of Hep. C, genital herpes and psych. history of PTSD, Bipolar and depression. He denies suicidal ideation at this time and reports blackouts. Confidential Drug Utilization Report Search Terms: betty cruz, 1975 Search Date: 07/28/2019 10:33:08 PM The Drug Utilization Report below displays all of the controlled substance prescriptions, if any, that your patient has filled in the last twelve months. The information displayed on this report is compiled from pharmacy submissions to the Department, and accurately reflects the information as submitted by the pharmacies. You have not added a MARU number. Keeping your MARU number(s) up to date on the My MARU Numbers page will enable the separation of your prescriptions from others ' in the search results. Others' Prescriptions Patient Name: Betty Cruz Date: 1975 Address: [address] [place] [address] Sex: Male Rx Written Rx Dispensed Drug Quantity Days Supply Prescriber Name 05/13/2019 05/13/2019 buprenorphine-naloxone 8-2 mg sl film 14 7 Manuel Glass MD 04/28/2019 04/28/2019 suboxone 8 mg-2 mg sl film 28 14 Manuel Glass MD 04/25/2019 04/25/2019 suboxone 8 mg-2 mg sl film 6 3 Manuel Glass MD 04/15/2019 04/17/2019 suboxone 8 mg-2 mg sl film 14 7 Manuel Glass MD 04/10/2019 04/10/2019 suboxone 8 mg-2 mg sl film 14 7 Manuel Glass MD 04/01/2019 04/01/2019 suboxone 8 mg-2 mg sl film 14 7 Manuel Glass MD 03/24/2019 03/24/2019 suboxone 8 mg-2 mg sl film 14 7 Manuel Glass MD Patient Name: Betty Cruz Date: 1975 Address: [address] [place] [address] Sex: Male Rx Written Rx Dispensed Drug Quantity Days Supply Prescriber Name 02/18/2019 02/25/2019 suboxone 8 mg-2 mg sl film 14 7 Manuel Glass MD Patient Name: Betty Cruz Date: 1975 Address: [address] [place] [id number] Sex: Male Rx Written Rx Dispensed Drug Quantity Days Supply Prescriber Name 02/11/2019 02/11/2019 suboxone 8 mg-2 mg sl film 28 14 Sarah Beth Herrera Patient Name: Betty Cruz Date: 1975 Address: [address] [place] [address] Sex: Male Rx Written Rx Dispensed Drug Quantity Days Supply Prescriber Name 01/31/2019 01/31/2019 suboxone 8 mg-2 mg sl film 20 10 Manuel Glass MD Patient Name: Betty Mishra Date: 1975 Address: [address] [place] [address] Sex: Male Rx Written Rx Dispensed Drug Quantity Days Supply Prescriber Name 01/24/2019 01/24/2019 buprenorphine-naloxone 8-2 mg sl film 30 15 Alejo Simpson MD * - Drugs marked with an asterisk are compound drugs. If the compound drug is made up of more than one controlled substance, then each controlled substance will be a separate row in the table. Exam Limitations: No Limitations - Ebola screening Have you traveled outside of the country in the last 21 days: No Have you had contact with anyone from an Ebola affected area: No Do you have a fever: No - Review of Systems Constitutional: Chills, Loss of Appetite, Malaise, Night Sweats, Changes in sleep EENT: reports: Nose Congestion Respiratory: reports: No Symptoms reported Cardiac: reports: No Symptoms Reported GI: reports: Diarrhea, Nausea, Poor Appetite, Poor Fluid Intake, Abdominal cramping : reports: No Symptoms Reported Musculoskeletal: reports: No Symptoms Reported Integumentary: reports: Dryness, Flushing Neuro: reports: Tremors Endocrine: reports: No Symptoms Reported Hematology: reports: No Symptoms Reported Psychiatric: reports: No Sypmtoms Reported, Mood/Affect Appropiate, Orientated x3, Agitated, Anxious Other Systems: Reviewed and Negative Patient History - Patient Medical History Hx Anemia: No Hx Asthma: No Hx Chronic Obstructive Pulmonary Disease (COPD): No Hx Cancer: No Hx Cardiac Disorders: No Hx Congestive Heart Failure: No Hx Hypertension: No Hx Hypercholesterolemia: No Hx Pacemaker: No HX Cerebrovascular Accident: No Hx Seizures: No Hx Dementia: No Hx Diabetes: No Hx Gastrointestinal Disorders: No Hx Liver Disease: No Hx Genitourinary Disorders: No Hx Sexually Transmitted Disorders: No Hx Renal Disease (ESRD): No Hx Thyroid Disease: No Hx Human Immunodeficiency Virus (HIV): No (jan 2012- negative) Hx Hepatitis C: Yes (tx with inf and ribavirin x 6m) Hx Depression: Yes Hx Suicide Attempt: No (Denies suicidal ideation at this time) Hx Bipolar Disorder: Yes Hx Schizophrenia: No Other Medical History: PTSD - Patient Surgical History Past Surgical History: No Hx Neurologic Surgery: No Hx Cataract Extraction: No Hx Cardiac Surgery: No Hx Lung Surgery: No Hx Abdominal Surgery: No Hx Appendectomy: No Hx Cholecystectomy: No Hx Genitourinary Surgery: No Hx Orthopedic Surgery: No Anesthesia Reaction: No - PPD History Previous Implant?: Yes Documented Results: Negative w/proof Implanted On Prior [facility] Admission?: Yes Date: 05/12/18 Results: 0MM PPD to be Administered?: Yes - Reproductive History Patient is a Female of Child Bearing Age (11 -55 yrs old): No (male) - Smoking Cessation Smoking history: Current every day smoker Have you smoked in the past 12 months: Yes Aproximately how many cigarettes per day: 10 Cigars Per Day: 0 Hx Chewing Tobacco Use: No Initiated information on smoking cessation: Yes 'Breaking Loose' booklet given: 07/28/19 - Substance & Tx. History Hx Alcohol Use: Yes Hx Substance Use: Yes Substance Use Type: Alcohol, Cocaine, Heroin, Opiates Hx Substance Use Treatment: Yes ([facility]) - Substances abused Alcohol Substance route: Oral Frequency: Daily Amount used: 5-7 (16oz) Beers Age of first use: 11 Date of last use: 07/28/19 Heroin Substance route: Injection Frequency: Daily Amount used: 20 bags Age of first use: 22 Date of last use: 07/28/19 Admission Physical Exam [facility] - Vital Signs Vital Signs: Vital Signs - 24 hr 07/28/19 20:18 Temperature 97.7 F Pulse Rate 86 Respiratory 16 Rate Blood Pressure 117/72 - Physical General Appearance: Yes: Moderate Distress, Tremorous, Anxious HEENTM: Yes: Within Normal Limits Respiratory: Yes: Lungs Clear, Normal Breath Sounds, No Respiratory Distress Neck: Yes: Within Normal Limits Breast: Yes: Breast Exam Deferred Cardiology: Yes: Within Normal Limits Abdominal: Yes: Normal Bowel Sounds, Soft Genitourinary: Yes: Within Normal Limits Back: Yes: Normal Inspection Musculoskeletal: Yes: Within Normal Limits Extremities: Yes: Tremors 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: Within Normal Limits, Alert, Normal Mood/Affect Integumentary: Yes: Warm, Track Alexander (both hands) Lymphatic: Yes: Within Normal Limits Cleared for Admission [facility] - Detox or Rehab [facility] Level of Care: Medically Managed Detox Regimen/Protocol: Methadone/Librium Claeared for Rehab Admission: Yes Breathalyzer - Breathalyzer Breathalyzer: 0 Urine Drug Screen - Test Device Lot number: [id number] Expiration date: 05/17/21 - Control Is test valid?: Yes - Results Drug screen NEGATIVE: No Urine drug screen results: ANGELLA-Cocaine, FEN-Fentanyl, MOP-Opiates, MTD-Methadone , BZO-Benzodiazepines Inpatient Rehab Admission - Rehab Decision to Admit Inpatient rehab admission?: No
[2019-07-28] MEDS ORDERED: MAGNESIUM HYDROX 2400MG/30ML ORAL SUSPENSION 30 ML CUP PO PRN (22:58)
[2019-07-28] MEDS ORDERED: MAGNESIUM CITRATE 300 ML BOTTLE PO PRN (22:58)
[2019-07-28] MEDS ORDERED: MAG HYDROX/AL HYDROX/SIMETH 30 ML UNIT-DOSE CUP PO PRN (22:58)
[2019-07-28] MEDS ORDERED: METHOCARBAMOL 500 MG TABLET PO PRN (22:58)
[2019-07-28] MEDS ORDERED: ACETAMINOPHEN 325 MG TABLET (FP) PO PRN ×2 (22:58)
[2019-07-28] MEDS ORDERED: chlordiazePOXIDE HCL 25 MG CAPSULE PO PRN (22:58)
[2019-07-28] MEDS ORDERED: cloNIDine HCL 0.1 MG TABLET PO PRN (22:58)
[2019-07-28] MEDS ORDERED: MELATONIN 5 MG TABLETS PO PRN (22:58)
[2019-07-28] MEDS ORDERED: NICOTINE POLACRILEX 2 MG GUM BUC PRN (22:58)
[2019-07-28] MEDS ORDERED: MENTHOL/PHENOL 1 EACH UD MM PRN (22:58)
[2019-07-28] MEDS ORDERED: BISMUTH SUBSALICYLATE 524 MG/30 ML UD PO PRN (22:58)
[2019-07-28] MEDS ORDERED: IBUPROFEN 400 MG TABLET (FP) PO PRN (22:58)
[2019-07-28] MEDS ORDERED: METHADONE HCL 10 MG TABLET (FOR DETOX USE ONLY) PO ONE (23:15)
[2019-07-29] MEDS: chlordiazePOXIDE HCL 25 MG CAPSULE PO SCH ×5 (00:06→22:02)
[2019-07-29] MEDS ORDERED: METHADONE HCL 10 MG TABLET (FOR DETOX USE ONLY) ONE (09:23)
[2019-07-29] MEDS ORDERED: METHADONE HCL 5 MG TABLET (FOR DETOX USE ONLY) ONE (09:23)
[2019-07-29] MEDS ORDERED: PRENATAL VITAMINS W/ FOLIC ACID TABLET (FP) PO SCH (10:00)
[2019-07-29] MEDS ORDERED: NICOTINE 14 MG/24 HOURS TOPICAL PATCH TD SCH (10:00)
[2019-07-29] MEDS ORDERED: METHOCARBAMOL 500 MG TABLET PO ONE (10:00)
[2019-07-29] MEDS ORDERED: METHADONE (DETOX) 20 MG, METHADONE (DETOX) 5 MG PO ONE (10:00)
[2019-07-29] MEDS ORDERED: ACETAMINOPHEN 325 MG TABLET (FP) PO ONE (10:01)
--- NOTE | 2019-07-29 10:06 | PN ---
[facility] CIWA - CIWA Score Nausea/Vomitin-No Nausea/No Vomiting Muscle Tremors: 4-Moderate,w/Arms Extend Anxiety: 4-Mod. Anxious/Guarded Agitation: 3 Paroxysmal Sweats: 2 Orientation: 0-Oriented Tacttile Disturbances: 0-None Auditory Disturbances: 0-None Visual Disturbances: 1-Very Mild Sensitivity Headache: 0-None Present CIWA-Ar Total Score: 14 S COWS - Scale Resting Pulse: 0= [place] 80 or Below Sweatin= Chills/Flushing Restless Observation: 0= Sits Still Pupil Size: 1= Pupils >than Normal Bone or Joint Aches: 2= Severe Diffuse Aches Runny Nose/ Eye Tearin= Runny Nose/Eyes GI Upset > 30mins: 1= Stomach Cramp Tremor Observation of Outstretched Hands: 2= Slight Tremor Visible Yawning Observation: 0= None Anxiety or Irritability: 2=Irritable/Anxious Goose Flesh Skin: 3=Piloerection COWS Score: 14 S Progress Note (SOAP) Subjective: 43 years old male admitted on 07/28/19 for alcohol and opiate withdrawal sx management treating with librium and methadone detox regiments muscle sore and joints ache robaxin 500 mg po x 1 and tylenal 650mg po x 1 Objective: 07/29/19 10:06 Vital Signs Temperature 97.3 F L 07/29/19 08:37 Pulse Rate 62 07/29/19 08:37 Respiratory Rate 16 07/29/19 08:37 Blood Pressure 109/70 07/29/19 08:37 O2 Sat by Pulse Oximetry (%) 07/29/19 10:06 lab pending Assessment: 07/29/19 10:06 alcohol and opiate withdrawal Plan: librium and methadone regiments
[2019-07-29 10:36] LABS: HEMATOCRIT 39.1 % (35.4-49); HEMOGLOBIN 12.7 GM/dL (11.7-16.9); MCH 27.7 pg (25.7-33.7); MCHC 32.5 g/dl (32.0-35.9); MEAN CELL VOLUME 85.3 fl (80-96); MEAN PLT VOLUME 9.5 fl (7.5-11.1); PLATELET COUNT 200 K/MM3 (134-434); RBC 4.58 M/mm3 (4.00-5.60); RDW 13.3 % (11.9-15.9); WHITE BLOOD COUNT 4.8 K/mm3 (4.0-10.0)
[2019-07-29 10:54] LABS: ALBUMIN 2.9 g/dl (3.4-5.0); BILIRUBIN,TOTAL 0.3 mg/dL (0.2-1); BLOOD UREA NITROGEN 8.1 mg/dL (7-18); CALCIUM 8.2 mg/dL (8.5-10.1); CREATININE 0.7 mg/dL (0.55-1.3); POTASSIUM 3.8 mmol/L (3.5-5.1); TOT PROT 6.1 g/dl (6.4-8.2)
--- NOTE | 2019-07-29 13:02 | EKG ---
Test Reason : Blood Pressure : / mmHG Vent. Rate : 069 BPM Atrial Rate : 069 BPM P-R Int : 128 ms QRS Dur : 106 ms QT Int : 434 ms P-R-T Axes : 060 057 059 degrees QTc Int : 465 ms NORMAL SINUS RHYTHM INCOMPLETE RIGHT BUNDLE BRANCH BLOCK BORDERLINE ECG NO PREVIOUS ECGS AVAILABLE Confirmed by Mario Banda MD ([id number]) on 07/29/2019 1:01:45 PM Referred By: Confirmed By:Mario Banda MD
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
[2019-07-29] MEDS ORDERED: THIAMINE HCL 100 MG TABLET (FP) PO SCH (22:00)
[2019-07-30] MEDS ORDERED: chlordiazePOXIDE HCL 25 MG CAPSULE PO SCH (05:00)
[2019-07-30 06:38] VITALS: BP 112/69; PULSE 68; TEMP 98.1
--- NOTE | 2019-07-30 08:55 | DS ---
[facility] Detox Discharge Summary Admission Date: 07/28/19 Discharge Date: 07/30/19 - History Present History: Alcohol Dependence, Opioid Dependence Additional Comments: 43 years old male admitted on 07/28/19 for alcohol and opiate withdrawal sx management treated with librium and methadone detox regiments patient is alert oriented x 3 speech clearly coherently ambulating steady gait Mr Wagner insists to leave the detox unit that "I am not ready" team met with the patient to discuss the benefits of detox completion patient prefers to deal with addiction independently Pertinent Past History: time for discharge: 25 minutes case discussed with the nurse against medical advice is appropriated - Physical Exam Results Vital Signs: Vital Signs Temperature 98.1 F 07/30/19 06:38 Pulse Rate 68 07/30/19 06:38 Respiratory Rate 18 07/30/19 06:38 Blood Pressure 112/69 07/30/19 06:38 O2 Sat by Pulse Oximetry (%) Pertinent Admission Physical Exam Findings: alcohol and opiate withdrawal Laboratory Last Values WBC 4.8 K/mm3 (4.0-10.0) 07/29/19 07:45 RBC 4.58 M/mm3 (4.00-5.60) 07/29/19 07:45 Hgb 12.7 GM/dL (11.7-16.9) 07/29/19 07:45 Hct 39.1 % (35.4-49) 07/29/19 07:45 MCV 85.3 fl (80-96) 07/29/19 07:45 MCH 27.7 pg (25.7-33.7) 07/29/19 07:45 MCHC 32.5 g/dl (32.0-35.9) 07/29/19 07:45 RDW 13.3 % (11.9-15.9) 07/29/19 07:45 Plt Count 200 K/MM3 (134-434) 07/29/19 07:45 MPV 9.5 fl (7.5-11.1) 07/29/19 07:45 Sodium 138 mmol/L (136-145) 07/29/19 07:45 Potassium 3.8 mmol/L (3.5-5.1) 07/29/19 07:45 Chloride 102 mmol/L (98-107) 07/29/19 07:45 Carbon Dioxide 30 mmol/L (21-32) 07/29/19 07:45 Anion Gap 5 MMOL/L (8-16) L 07/29/19 07:45 BUN 8.1 mg/dL (7-18) 07/29/19 07:45 Creatinine 0.7 mg/dL (0.55-1.3) 07/29/19 07:45 Est GFR (CKD-EPI)AfAm 133.02 07/29/19 07:45 Est GFR (CKD-EPI)NonAf 114.77 07/29/19 07:45 Random Glucose 107 mg/dL (74-106) H 07/29/19 07:45 Calcium 8.2 mg/dL (8.5-10.1) L 07/29/19 07:45 Total Bilirubin 0.3 mg/dL (0.2-1) 07/29/19 07:45 AST 41 U/L (15-37) H 07/29/19 07:45 ALT 40 U/L (13-61) 07/29/19 07:45 Alkaline Phosphatase 74 U/L (45-117) 07/29/19 07:45 Total Protein 6.1 g/dl (6.4-8.2) L 07/29/19 07:45 Albumin 2.9 g/dl (3.4-5.0) L 07/29/19 07:45 RPR Titer Nonreactive (NONREACTIVE) 07/29/19 07:45 lab noted - Treatment Hospital Course: Detox Protocol Followed Patient has Accepted [facility] - Medication Discharge Medications: Ambulatory Orders NK [No Known Home Medication] 05/10/18 - Diagnosis (1) Alcohol dependence, uncomplicated Status: Acute (2) Opioid dependence with withdrawal Status: Acute (3) Nicotine dependence Status: Acute (4) Substance induced mood disorder Status: Suspected (5) hep.c Status: Chronic - AMA Did Patient Leave Against Medical Advice: Yes
[2019-07-30] MEDS ORDERED: METHADONE HCL 10 MG TABLET (FOR DETOX USE ONLY) PO ONE (10:00)
[2019-07-31] MEDS ORDERED: chlordiazePOXIDE HCL 10 MG CAPSULE PO PRN
[2019-07-31] MEDS ORDERED: chlordiazePOXIDE HCL 10 MG CAPSULE PO SCH (05:00)
[2019-07-31] MEDS ORDERED: METHADONE (DETOX) 10 MG, METHADONE (DETOX) 5 MG PO ONE (10:00)
[2019-08-01] MEDS ORDERED: chlordiazePOXIDE HCL 10 MG CAPSULE PO SCH (05:00)
[2019-08-01] MEDS ORDERED: METHADONE HCL 10 MG TABLET (FOR DETOX USE ONLY) PO ONE (10:00)
[2019-08-02] MEDS ORDERED: chlordiazePOXIDE HCL 10 MG CAPSULE PO ONE (05:00)
[2019-08-02] MEDS ORDERED: METHADONE HCL 5 MG TABLET (FOR DETOX USE ONLY) PO ONE (06:00)
== END 2019-07-30 09:00 | disposition left against medical advice (07) | DRG 770 ==
LOC: YASAS 16:42 → Y3N 23:12
PROVIDERS: ADMIT Allergy & Immunology; ATTEND Allergy & Immunology
PROC: HZ2ZZZZ Detoxification Services for Substance Abuse Treatment (ICD-10-PCS; principal; 2019-07-28)
DX: F11.23 Opioid dependence with withdrawal (principal); F10.230 Alcohol dependence with withdrawal, uncomplicated; F14.20 Cocaine dependence, uncomplicated; F17.210 Nicotine dependence, cigarettes, uncomplicated; F19.24 Other psychoactive substance dependence with psychoactive substance-induced mood disorder; G47.00 Insomnia, unspecified; B18.2 Chronic viral hepatitis C; M54.5 Low back pain; G89.29 Other chronic pain; Z87.438 Personal history of other diseases of male genital organs; Z91.013 Allergy to seafood; Z91.018 Allergy to other foods
CPT/HCPCS: 36415; 80053; 85027; 86593; 93005; 93010

== ENCOUNTER 2020-02-05 14:13 | Inpatient (IN) | payer OTHER ==
--- NOTE | 2020-02-05 14:47 | BHS.RME ---
Substance Use & Tx History - Substance Use History Heroin Substance amount: 7-8 bags Frequency of use: Daily Substance route: Injection (ex: intravenous or skin popping) Date of Last Use: 02/04/20 COWS - Scale Resting Pulse: 0= [place] 80 or Below Sweatin= Chills/Flushing Restless Observation: 1= Difficult to Sit Still Pupil Size: 1= Pupils >than Normal Bone or Joint Aches: 4=Acute Joint/Muscle Pain Runny Nose/ Eye Tearin= None GI Upset > 30mins: 0= None Tremor Observation: 1= Tremor [place], Not Seen Yawning Observation: 0= None Anxiety or Irritability: 2=Irritable/Anxious Goose Flesh Skin: 0=Smooth Skin COWS Score: 10 CIWA Nausea/Vomitin-No Nausea/No Vomiting Muscle Tremors: None Anxiety: 2 Agitation: 1-Slight > Activity Paroxysmal Sweats: 4-Forehead w/Sweat Beads Orientation: 0-Oriented Tacttile Disturbances: 0-None Auditory Disturbances: 0-None Visual Disturbances: 0-None Headache: 0-None Present CIWA-Ar Total Score: 7
--- NOTE | 2020-02-05 15:58 | HP ---
<Chuck Ramírez - Last Filed: 02/05/20 15:53> COWS - Scale Resting Pulse: 0= [place] 80 or Below Sweatin= Chills/Flushing Restless Observation: 1= Difficult to Sit Still Pupil Size: 1= Pupils >than Normal Bone or Joint Aches: 4=Acute Joint/Muscle Pain Runny Nose/ Eye Tearin= None GI Upset > 30mins: 0= None Tremor Observation: 1= Tremor [place], Not Seen Yawning Observation: 0= None Anxiety or Irritability: 2=Irritable/Anxious Goose Flesh Skin: 0=Smooth Skin COWS Score: 10 CIWA Score Nausea/Vomitin-No Nausea/No Vomiting Muscle Tremors: None Anxiety: 2 Agitation: 1-Slight > Activity Paroxysmal Sweats: 4-Forehead w/Sweat Beads Orientation: 0-Oriented Tacttile Disturbances: 0-None Auditory Disturbances: 0-None Visual Disturbances: 0-None Headache: 0-None Present CIWA-Ar Total Score: 7 - Admission Criteria OASAS Guidelines: Admission for Medically Managed Detox: Requires at least one of the followin. CIWA greater than 12 2. Seizures within the past 24 hours 3. Delirium tremens within the past 24 hours 4. Hallucinations within the past 24 hours 5. Acute intervention needed for co occurring medical disorder 6. Acute intervention needed for co occurring psychiatric disorder 7. Severe withdrawal that cannot be handled at a lower level of care (continued vomiting, continued diarrhea, abnormal vital signs) requiring intravenous medication and/or fluids 8. Admitting History and Physical - Admission History of Present Illness: Patient is a 44 year old male with history of HCTV (treated), opiate use disorder, presents for detox. PMH: HCV (currently undergoing treatment), PSH: denies Social: Lives in apartment in [place]. Unemployed. 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 Psych: depression Legal: denies - Substance Use History Heroin Substance amount: 7-8 bags Frequency of use: Daily Substance route: Injection (ex: intravenous or skin popping) Date of Last Use: 02/04/20 History Source: Patient Limitations to Obtaining History: No Limitations - Past Medical History Hepatobiliary: Yes: Hepatitis C Infectious Disease: Yes: STD's (gential herpes no outbreak in two years) Psych: Yes: Depression, Other (PTSD) Musculoskeletal: Yes: Chronic low back pain - Past Surgical History Past Surgical History: Yes: None - Smoking History Smoking history: Current every day smoker Have you smoked in the past 12 months: Yes Aproximately how many cigarettes per day: 10 - Alcohol/Substance Use Hx Alcohol Use: Yes - Social History ADL: Independent History of Recent Travel: No Admission [facility] Chief Complaint: Patient is a 44 year old male with history of HCTV (treated), opiate use disorder, presents for detox. Allergies/Adverse Reactions: Allergies Allergy/AdvReac Type Severity Reaction Status Date / Time cefazolin sodium [From Ancef] Allergy Severe Swelling & Verified 02/05/20 16:29 HIVES fish derived Allergy Mild Hives Verified 02/05/20 16:29 shellfish derived Allergy Mild Hives Verified 02/05/20 16:29 mustard Allergy Mild Hives Uncoded 02/05/20 16:29 SEAFOOD Allergy Mild Hives Uncoded 02/05/20 16:29 Exam Limitations: No Limitations - Ebola screening Have you traveled outside of the country in the last 21 days: No Have you been sick,other than usual withdrawal symptoms: No Do you have a fever: No - Review of Systems Constitutional: No Symptoms Reported EENT: denies: Blurred Vision, Hearing Loss Respiratory: denies: Cough, Shortness of Breath Cardiac: denies: Chest Pain, Lightheadedness, Palpitations GI: denies: Nausea, Vomiting, Abdominal cramping : denies: Burning, Dysuria Musculoskeletal: reports: Back Pain (chronic) Integumentary: denies: Lesions, Rash Neuro: denies: Numbness, Weakness Psychiatric: reports: Depressed, other (denies suicidal, homicidal ideation) Patient History - Patient Medical History Hx Anemia: No Hx Asthma: No Hx Chronic Obstructive Pulmonary Disease (COPD): No Hx Cancer: No Hx Cardiac Disorders: No Hx Congestive Heart Failure: No Hx Hypertension: No Hx Hypercholesterolemia: No Hx Pacemaker: No HX Cerebrovascular Accident: No Hx Seizures: No Hx Dementia: No Hx Diabetes: No Hx Gastrointestinal Disorders: No Hx Liver Disease: No Hx Genitourinary Disorders: No Hx Sexually Transmitted Disorders: No Hx Renal Disease (ESRD): No Hx Thyroid Disease: No Hx Human Immunodeficiency Virus (HIV): No (jan 2012- negative) Hx Hepatitis C: Yes (tx with inf and ribavirin x 6m) Hx Depression: Yes Hx Suicide Attempt: No (Denies suicidal ideation at this time) Hx Bipolar Disorder: Yes Hx Schizophrenia: No - Patient Surgical History Past Surgical History: No Hx Neurologic Surgery: No Hx Cataract Extraction: No Hx Cardiac Surgery: No Hx Lung Surgery: No Hx Breast Surgery: No Hx Breast Biopsy: No Hx Abdominal Surgery: No Hx Appendectomy: No Hx Cholecystectomy: No Hx Genitourinary Surgery: No Hx Section: No Hx Orthopedic Surgery: No Anesthesia Reaction: No - PPD History Previous Implant?: Yes Documented Results: Negative w/proof Implanted On Prior [facility] Admission?: Yes Date: 07/31/19 Results: 0MM PPD to be Administered?: No - Reproductive History Patient is a Female of Child Bearing Age (11 -55 yrs old): No Patient : No - Smoking Cessation Smoking history: Current every day smoker Have you smoked in the past 12 months: Yes Aproximately how many cigarettes per day: 10 Cigars Per Day: 0 Hx Chewing Tobacco Use: No Initiated information on smoking cessation: Yes 'Breaking Loose' booklet given: 02/05/20 - Substance & Tx. History Hx Alcohol Use: Yes Substance Use Type: Alcohol, Heroin - Substances abused Heroin Substance route: Injection Frequency: Daily Amount used: 7-8 bags Age of first use: 22 Date of last use: 02/05/20 Alcohol Frequency: 3-6 times per week Amount used: 6 beers/ day Age of first use: 11 Date of last use: 02/04/20 Admission Physical Exam [facility] Physical General Appearance: Yes: Nourished, Mild Distress HEENTM: Yes: EOMI, Normal Voice, DAMION Respiratory: Yes: Lungs Clear, Normal Breath Sounds, No Respiratory Distress, No Accessory Muscle Use Neck: Yes: Supple Breast: Yes: Breast Exam Deferred Cardiology: Yes: Regular Rhythm, Regular Rate, S1, S2 Abdominal: Yes: Normal Bowel Sounds, Non Tender, Flat, Soft 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: Alert, Motor Strength 5/5, Normal Mood/Affect Integumentary: Yes: Dry, Warm - Diagnostic (1) Depression Current Visit: No Status: Chronic Qualifiers: Major depression episode severity: unspecified (2) Opioid dependence with withdrawal Current Visit: Yes Status: Acute (3) Alcohol use disorder Current Visit: No Status: Chronic Cleared for Admission [facility] - Detox or Rehab [facility] Level of Care: Medically Managed Detox Regimen/Protocol: Methadone Claeared for Rehab Admission: No Screened but not Admitted - Documentation of Visit Screened but not Admitted: No Breathalyzer - Breathalyzer Breathalyzer: 0 Urine Drug Screen - Test Device Lot number: [id number] Expiration date: 09/23/21 - Control Is test valid?: Yes - Results Drug screen NEGATIVE: No Urine drug screen results: ANGELLA-Cocaine, FEN-Fentanyl, MOP-Opiates, MTD-Methadone Inpatient Rehab Admission - Rehab Decision to Admit Inpatient rehab admission?: No <Willy Ahn - Last Filed: 02/06/20 07:42> CIWA Score - Admission Criteria OASAS Guidelines: Admission for Medically Managed Detox: Requires at least one of the followin. CIWA greater than 12 2. Seizures within the past 24 hours 3. Delirium tremens within the past 24 hours 4. Hallucinations within the past 24 hours 5. Acute intervention needed for co occurring medical disorder 6. Acute intervention needed for co occurring psychiatric disorder 7. Severe withdrawal that cannot be handled at a lower level of care (continued vomiting, continued diarrhea, abnormal vital signs) requiring intravenous medication and/or fluids 8. Admission Physical Exam BHS - Vital Signs Vital Signs: Vital Signs - 24 hr 02/05/20 02/05/20 02/05/20 16:39 17:28 18:00 Temperature 97.2 F L 97.1 F L Pulse Rate 70 62 Respiratory 19 20 Rate Blood Pressure 110/70 113/75 O2 Sat by Pulse 98 96 Oximetry (%) 02/05/20 02/06/20 20:50 06:45 Temperature 96.9 F L 97.3 F L Pulse Rate 51 L 58 L Respiratory 18 18 Rate Blood Pressure 113/70 100/62 O2 Sat by Pulse 96 100 Oximetry (%) Vital Signs - Vital Signs Vital signs refused: No Temperature: 97.1 F Temperature source: Oral Pulse Rate: 62 Respiratory Rate: 20 Blood Pressure: 113/75 BP Location: Left Arm Blood Pressure position: Sitting - Weight Weight measurement method: Standing scale
[2020-02-05] MEDS ORDERED: MAGNESIUM HYDROX 2400MG/30ML ORAL SUSPENSION 30 ML CUP PO PRN (16:01)
[2020-02-05] MEDS ORDERED: IBUPROFEN 400 MG TABLET (FP) PO PRN (16:01)
[2020-02-05] MEDS ORDERED: NICOTINE POLACRILEX 2 MG GUM BUC PRN (16:01)
[2020-02-05] MEDS ORDERED: ONDANSETRON *ODT* 4 MG TABLET SL PRN (16:01)
[2020-02-05] MEDS ORDERED: cloNIDine HCL 0.1 MG TABLET PO PRN (16:01)
[2020-02-05] MEDS ORDERED: ACETAMINOPHEN 325 MG TABLET (FP) PO PRN ×2 (16:01)
[2020-02-05] MEDS ORDERED: MENTHOL/PHENOL 1 EACH UD MM PRN (16:01)
[2020-02-05] MEDS ORDERED: MAG HYDROX/AL HYDROX/SIMETH 30 ML UNIT-DOSE CUP PO PRN (16:01)
[2020-02-05] MEDS ORDERED: MAGNESIUM CITRATE 300 ML BOTTLE PO PRN (16:01)
[2020-02-05] MEDS ORDERED: METHOCARBAMOL 500 MG TABLET PO PRN (16:01)
[2020-02-05] MEDS ORDERED: BISMUTH SUBSALICYLATE 524 MG/30 ML UD PO PRN (16:01)
[2020-02-05 16:44] VITALS: BMI 23.8
[2020-02-05] MEDS ORDERED: METHADONE HCL 10 MG TABLET (FOR DETOX USE ONLY) PO ONE (17:45)
[2020-02-05] MEDS: hydrOXYzine PAMOATE 25 MG CAPSULE (FP) PO SCH ×2 (18:15→22:51)
[2020-02-05] MEDS: MELATONIN 5 MG TABLETS PO SCH (22:51)
[2020-02-05] MEDS: THIAMINE HCL 100 MG TABLET (FP) PO SCH (22:51)
[2020-02-06] MEDS: hydrOXYzine PAMOATE 25 MG CAPSULE (FP) PO SCH ×5 (07:14→21:58)
--- NOTE | 2020-02-06 07:58 | PN ---
Teaching Attending Note Name of Resident: Chuck Ramírez ATTENDING PHYSICIAN STATEMENT I saw and evaluated the patient. I reviewed the resident's note and discussed the case with the resident. I agree with the resident's findings and plan as documented. SUBJECTIVE: OBJECTIVE: ASSESSMENT AND PLAN: I agree with resident's plan for detox.
[2020-02-06] MEDS ORDERED: METHADONE (DETOX) 20 MG, METHADONE (DETOX) 5 MG PO ONE (10:00)
[2020-02-06 10:22] LABS: BILIRUBIN,TOTAL 0.3 mg/dL (0.2-1); BLOOD UREA NITROGEN 9.2 mg/dL (7-18); CALCIUM 8.1 mg/dL (8.5-10.1); CREATININE 0.7 mg/dL (0.55-1.3); POTASSIUM 4.6 mmol/L (3.5-5.1)
[2020-02-06 10:25] LABS: HEMATOCRIT 38.4 % (35.4-49); HEMOGLOBIN 12.7 GM/dL (11.7-16.9); MCH 28.6 pg (25.7-33.7); MEAN CELL VOLUME 86.8 fl (80-96); MEAN PLT VOLUME 9.9 fl (7.5-11.1); PLATELET COUNT 209 K/MM3 (134-434); RBC 4.43 M/mm3 (4.00-5.60); RDW 13.2 % (11.9-15.9); WHITE BLOOD COUNT 5.2 K/mm3 (4.0-10.0)
[2020-02-06] MEDS ORDERED: METHADONE HCL 10 MG TABLET (FOR DETOX USE ONLY) ONE (10:27)
[2020-02-06] MEDS ORDERED: METHADONE HCL 5 MG TABLET (FOR DETOX USE ONLY) ONE (10:27)
[2020-02-06] MEDS: PATIENT'S OWN MEDICATION (NON-FORMULARY) (Glecaprevir/Pibrentasvir [Mavyret 100-40 Mg Tabl PO SCH (10:34)
[2020-02-06] MEDS: NICOTINE 7 MG/24 HOURS TOPICAL PATCH TD SCH (10:36)
[2020-02-06] MEDS: PRENATAL VITAMINS W/ FOLIC ACID TABLET (FP) PO SCH (10:36)
--- NOTE | 2020-02-06 11:39 | PN ---
[facility] CIWA - CIWA Score Nausea/Vomitin-No Nausea/No Vomiting Muscle Tremors: None Anxiety: 3 Agitation: 0-Normal Activity Paroxysmal Sweats: 3 Orientation: 0-Oriented Tacttile Disturbances: 1-Very Mild Itch/Numbness Auditory Disturbances: 0-None Visual Disturbances: 0-None Headache: 2-Mild CIWA-Ar Total Score: 9 BHS COWS - Scale Resting Pulse: 0= [place] 80 or Below Sweatin= Chills/Flushing Restless Observation: 1= Difficult to Sit Still Pupil Size: 0= Normal to Room Light Bone or Joint Aches: 2= Severe Diffuse Aches Runny Nose/ Eye Tearin= None GI Upset > 30mins: 0= None Tremor Observation of Outstretched Hands: 0= None Yawning Observation: 1= 1-2x During Session Anxiety or Irritability: 2=Irritable/Anxious Goose Flesh Skin: 0=Smooth Skin COWS Score: 7 S Progress Note (SOAP) Subjective: c/o anxiety, sweats, headache, and muscle aches. Objective: 02/06/20 11:40 Vital Signs 02/06/20 02/06/20 02/06/20 06:45 07:42 08:58 Temperature 97.3 F L 97.1 F L 97.3 F L Pulse Rate 58 L 62 48 L Respiratory 18 20 18 Rate Blood Pressure 100/62 113/75 99/64 O2 Sat by Pulse 100 Oximetry (%) Laboratory Last Values WBC 5.2 K/mm3 (4.0-10.0) 02/06/20 07:50 RBC 4.43 M/mm3 (4.00-5.60) 02/06/20 07:50 Hgb 12.7 GM/dL (11.7-16.9) 02/06/20 07:50 Hct 38.4 % (35.4-49) 02/06/20 07:50 MCV 86.8 fl (80-96) 02/06/20 07:50 MCH 28.6 pg (25.7-33.7) 02/06/20 07:50 MCHC 33.0 g/dl (32.0-35.9) 02/06/20 07:50 RDW 13.2 % (11.9-15.9) 02/06/20 07:50 Plt Count 209 K/MM3 (134-434) 02/06/20 07:50 MPV 9.9 fl (7.5-11.1) 02/06/20 07:50 Sodium 140 mmol/L (136-145) 02/06/20 07:50 Potassium 4.6 mmol/L (3.5-5.1) 02/06/20 07:50 Chloride 105 mmol/L (98-107) 02/06/20 07:50 Carbon Dioxide 31 mmol/L (21-32) 02/06/20 07:50 Anion Gap 4 MMOL/L (8-16) L 02/06/20 07:50 BUN 9.2 mg/dL (7-18) 02/06/20 07:50 Creatinine 0.7 mg/dL (0.55-1.3) 02/06/20 07:50 Est GFR (CKD-EPI)AfAm 132.09 02/06/20 07:50 Est GFR (CKD-EPI)NonAf 113.97 02/06/20 07:50 Random Glucose 91 mg/dL (74-106) 02/06/20 07:50 Calcium 8.1 mg/dL (8.5-10.1) L 02/06/20 07:50 Total Bilirubin 0.3 mg/dL (0.2-1) 02/06/20 07:50 AST 19 U/L (15-37) 02/06/20 07:50 ALT 14 U/L (13-61) 02/06/20 07:50 Alkaline Phosphatase 79 U/L (45-117) 02/06/20 07:50 Total Protein 6.0 g/dl (6.4-8.2) L 02/06/20 07:50 Albumin 3.0 g/dl (3.4-5.0) L 02/06/20 07:50 Syphilis Serology Non-reactive (NONREACTIVE) 02/06/20 07:50 Labs noted. Assessment: 02/06/20 11:40 AOX3, in no acute respiratory distress. Full ROM, ambulating in the unit. Withdrawal symptoms. Plan: continue detox.
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
[2020-02-06] MEDS: lamoTRIgine 100 MG TABLET PO SCH (14:26)
[2020-02-06] MEDS: THIAMINE HCL 100 MG TABLET (FP) PO SCH (21:58)
[2020-02-06] MEDS: MELATONIN 5 MG TABLETS PO SCH (21:58)
[2020-02-06] MEDS ORDERED: MIRTAZAPINE 15 MG TABLET (FP) PO SCH (22:00)
[2020-02-07] MEDS: hydrOXYzine PAMOATE 25 MG CAPSULE (FP) PO SCH ×3 (07:33→14:15)
[2020-02-07 09:59] VITALS: BP 100/61; PULSE 48; TEMP 98.3
[2020-02-07] MEDS ORDERED: METHADONE HCL 10 MG TABLET (FOR DETOX USE ONLY) PO ONE (10:00)
--- NOTE | 2020-02-07 10:27 | PN ---
S CIWA - CIWA Score Nausea/Vomitin-No Nausea/No Vomiting Muscle Tremors: None Anxiety: 2 Agitation: 0-Normal Activity Paroxysmal Sweats: 3 Orientation: 0-Oriented Tacttile Disturbances: 0-None Auditory Disturbances: 0-None Visual Disturbances: 0-None Headache: 2-Mild CIWA-Ar Total Score: 7 S COWS - Scale Resting Pulse: 0= [place] 80 or Below Sweatin= Chills/Flushing Restless Observation: 1= Difficult to Sit Still Pupil Size: 0= Normal to Room Light Bone or Joint Aches: 2= Severe Diffuse Aches Runny Nose/ Eye Tearin= None GI Upset > 30mins: 0= None Tremor Observation of Outstretched Hands: 0= None Yawning Observation: 0= None Anxiety or Irritability: 2=Irritable/Anxious Goose Flesh Skin: 0=Smooth Skin COWS Score: 6 S Progress Note (SOAP) Subjective: c/o sweats, anxiety, headache, muscle aches. Objective: 02/07/20 10:30 Vital Signs 02/07/20 02/07/20 06:39 09:15 Temperature 97.6 F 98.3 F Pulse Rate 58 L 48 L Respiratory 18 16 Rate Blood Pressure 99/54 L 100/61 O2 Sat by Pulse 98 98 Oximetry (%) Laboratory Last Values WBC 5.2 K/mm3 (4.0-10.0) 02/06/20 07:50 RBC 4.43 M/mm3 (4.00-5.60) 02/06/20 07:50 Hgb 12.7 GM/dL (11.7-16.9) 02/06/20 07:50 Hct 38.4 % (35.4-49) 02/06/20 07:50 MCV 86.8 fl (80-96) 02/06/20 07:50 MCH 28.6 pg (25.7-33.7) 02/06/20 07:50 MCHC 33.0 g/dl (32.0-35.9) 02/06/20 07:50 RDW 13.2 % (11.9-15.9) 02/06/20 07:50 Plt Count 209 K/MM3 (134-434) 02/06/20 07:50 MPV 9.9 fl (7.5-11.1) 02/06/20 07:50 Sodium 140 mmol/L (136-145) 02/06/20 07:50 Potassium 4.6 mmol/L (3.5-5.1) 02/06/20 07:50 Chloride 105 mmol/L (98-107) 02/06/20 07:50 Carbon Dioxide 31 mmol/L (21-32) 02/06/20 07:50 Anion Gap 4 MMOL/L (8-16) L 02/06/20 07:50 BUN 9.2 mg/dL (7-18) 02/06/20 07:50 Creatinine 0.7 mg/dL (0.55-1.3) 02/06/20 07:50 Est GFR (CKD-EPI)AfAm 132.09 02/06/20 07:50 Est GFR (CKD-EPI)NonAf 113.97 02/06/20 07:50 Random Glucose 91 mg/dL (74-106) 02/06/20 07:50 Calcium 8.1 mg/dL (8.5-10.1) L 02/06/20 07:50 Total Bilirubin 0.3 mg/dL (0.2-1) 02/06/20 07:50 AST 19 U/L (15-37) 02/06/20 07:50 ALT 14 U/L (13-61) 02/06/20 07:50 Alkaline Phosphatase 79 U/L (45-117) 02/06/20 07:50 Total Protein 6.0 g/dl (6.4-8.2) L 02/06/20 07:50 Albumin 3.0 g/dl (3.4-5.0) L 02/06/20 07:50 Syphilis Serology Non-reactive (NONREACTIVE) 02/06/20 07:50 COVID-19 ([facility]BER) Not detected (Not Detected) 02/05/20 16:30 HIV Ag/Ab Combo Qual Negative (NEGATIVE) 02/06/20 07:50 Labs noted. Assessment: 02/07/20 10:30 AOX3, in no acute respiratory distress. Full ROM, ambulating in the unit. Withdrawal symptoms. Plan: continue detox.
[2020-02-07] MEDS: lamoTRIgine 100 MG TABLET PO SCH (11:40)
[2020-02-07] MEDS: PATIENT'S OWN MEDICATION (NON-FORMULARY) (Glecaprevir/Pibrentasvir [Mavyret 100-40 Mg Tabl PO SCH (11:40)
[2020-02-07] MEDS: PRENATAL VITAMINS W/ FOLIC ACID TABLET (FP) PO SCH (11:40)
[2020-02-07] MEDS: NICOTINE 7 MG/24 HOURS TOPICAL PATCH TD SCH (11:41)
--- NOTE | 2020-02-07 15:10 | DS ---
[facility] Detox Discharge Summary Admission Date: 02/05/20 Discharge Date: 02/07/20 (Pt left AMA) - History Present History: Alcohol Dependence, Opioid Dependence Additional Comments: Pt left AMA. Pt did not complete the detox protocol. Pt states, "i just want to leave". An attempt to let pt stay and complete the detox protocol failed. Pt is instructed to follow-up with an outpatient CD program and also to follow-up with his pmd but was adamant. Pt is AOX3, in no acute respiratory distress. Full ROM, and ambulatory. Pertinent Past History: h/o alcohol and heroin use disorder. - Physical Exam Results Vital Signs: Vital Signs Temperature 98.3 F 02/07/20 09:15 Pulse Rate 48 L 02/07/20 09:15 Respiratory Rate 16 02/07/20 09:15 Blood Pressure 100/61 02/07/20 09:15 O2 Sat by Pulse Oximetry (%) 98 02/07/20 09:15 Vital Signs 02/07/20 09:15 Temperature 98.3 F Pulse Rate 48 L Respiratory 16 Rate Blood Pressure 100/61 O2 Sat by Pulse 98 Oximetry (%) Laboratory Last Values WBC 5.2 K/mm3 (4.0-10.0) 02/06/20 07:50 RBC 4.43 M/mm3 (4.00-5.60) 02/06/20 07:50 Hgb 12.7 GM/dL (11.7-16.9) 02/06/20 07:50 Hct 38.4 % (35.4-49) 02/06/20 07:50 MCV 86.8 fl (80-96) 02/06/20 07:50 MCH 28.6 pg (25.7-33.7) 02/06/20 07:50 MCHC 33.0 g/dl (32.0-35.9) 02/06/20 07:50 RDW 13.2 % (11.9-15.9) 02/06/20 07:50 Plt Count 209 K/MM3 (134-434) 02/06/20 07:50 MPV 9.9 fl (7.5-11.1) 02/06/20 07:50 Sodium 140 mmol/L (136-145) 02/06/20 07:50 Potassium 4.6 mmol/L (3.5-5.1) 02/06/20 07:50 Chloride 105 mmol/L (98-107) 02/06/20 07:50 Carbon Dioxide 31 mmol/L (21-32) 02/06/20 07:50 Anion Gap 4 MMOL/L (8-16) L 02/06/20 07:50 BUN 9.2 mg/dL (7-18) 02/06/20 07:50 Creatinine 0.7 mg/dL (0.55-1.3) 02/06/20 07:50 Est GFR (CKD-EPI)AfAm 132.09 02/06/20 07:50 Est GFR (CKD-EPI)NonAf 113.97 02/06/20 07:50 Random Glucose 91 mg/dL (74-106) 02/06/20 07:50 Calcium 8.1 mg/dL (8.5-10.1) L 02/06/20 07:50 Total Bilirubin 0.3 mg/dL (0.2-1) 02/06/20 07:50 AST 19 U/L (15-37) 02/06/20 07:50 ALT 14 U/L (13-61) 02/06/20 07:50 Alkaline Phosphatase 79 U/L (45-117) 02/06/20 07:50 Total Protein 6.0 g/dl (6.4-8.2) L 02/06/20 07:50 Albumin 3.0 g/dl (3.4-5.0) L 02/06/20 07:50 Syphilis Serology Non-reactive (NONREACTIVE) 02/06/20 07:50 COVID-19 (HUBER) Not detected (Not Detected) 02/05/20 16:30 HIV Ag/Ab Combo Qual Negative (NEGATIVE) 02/06/20 07:50 Labs noted. Pertinent Admission Physical Exam Findings: withdrawal symptoms. - Treatment Hospital Course: Detox Protocol Followed, Detoxed Safely, Responded well, Discharged Condition Good - Medication Discharge Medications: Ambulatory Orders Aspirin [Aspirin EC] 81 mg PO DAILY 02/05/20 Glecaprevir/Pibrentasvir [Mavyret 100-40 mg Tablet] 3 each PO DAILY 02/05/20 Lamotrigine [Lamictal -] 100 mg PO DAILY 02/05/20 Mirtazapine 15 mg PO HS 02/05/20 Naproxen Sodium [Aleve] 220 mg PO ONCE PRN 02/05/20 - Diagnosis (1) Alcohol dependence, uncomplicated Current Visit: Yes Status: Chronic (2) Opioid dependence with withdrawal Current Visit: Yes Status: Acute (3) Nicotine dependence Current Visit: No Status: Chronic (4) Heroin abuse Current Visit: Yes Status: Chronic (5) Alcohol use disorder Current Visit: No Status: Chronic - AMA Did Patient Leave Against Medical Advice: Yes
[2020-02-08] MEDS ORDERED: METHADONE (DETOX) 10 MG, METHADONE (DETOX) 5 MG PO ONE (10:00)
[2020-02-09] MEDS ORDERED: METHADONE HCL 10 MG TABLET (FOR DETOX USE ONLY) PO ONE (10:00)
[2020-02-10] MEDS ORDERED: METHADONE HCL 5 MG TABLET (FOR DETOX USE ONLY) PO ONE (06:00)
== END 2020-02-07 15:09 | disposition left against medical advice (07) | DRG 770 ==
LOC: YASAS 14:13 → Y3N 17:02
PROVIDERS: ADMIT Allergy & Immunology; ATTEND Allergy & Immunology
PROC: HZ2ZZZZ Detoxification Services for Substance Abuse Treatment (ICD-10-PCS; principal; 2020-02-05)
DX: F11.23 Opioid dependence with withdrawal (principal); F10.20 Alcohol dependence, uncomplicated; F17.210 Nicotine dependence, cigarettes, uncomplicated; F19.282 Other psychoactive substance dependence with psychoactive substance-induced sleep disorder; F19.24 Other psychoactive substance dependence with psychoactive substance-induced mood disorder; F31.9 Bipolar disorder, unspecified; F43.10 Post-traumatic stress disorder, unspecified; F39 Unspecified mood [affective] disorder; B18.2 Chronic viral hepatitis C; M54.5 Low back pain; G89.29 Other chronic pain; Z87.438 Personal history of other diseases of male genital organs; Z88.8 Allergy status to other drugs, medicaments and biological substances; Z91.013 Allergy to seafood; Z91.018 Allergy to other foods
CPT/HCPCS: 36415; 80053; 85027; 86780; 87389; U0003

== ENCOUNTER 2020-03-05 15:14 | Inpatient (IN) | payer OTHER ==
[2020-03-05 17:10] VITALS: BMI 22.5
--- NOTE | 2020-03-05 17:28 | BHS.RME ---
Substance Use & Tx History - Substance Use History Heroin Substance amount: 12 bags Frequency of use: Daily Substance route: Injection (ex: intravenous or skin popping) Date of Last Use: 03/05/20 Cocaine- Powder Substance amount: $60 Frequency of use: Daily Substance route: Injection (ex: intravenous or skin popping) Date of Last Use: 03/05/20 Methadone Substance amount: sips Frequency of use: Less than 3 times per week Substance route: Oral Date of Last Use: 03/04/20 Nicotine Substance amount: 15 Frequency of use: Daily Substance route: Smoking Date of Last Use: 03/05/20 Alcohol Substance amount: 4-20 oz beers Frequency of use: Daily Substance route: Oral Date of Last Use: 03/04/20 - Last Treatment Date of last treatment: January 2020 Treatment type: Substance Use Disorder ([facility]) Where was last treatment: Detox Physical/Psych/Mental Status - Behavior General Behavior: Increased activity (restlessness, agitation) - Cooperativeness Cooperativeness: Cooperative - Thinking Thought Processes: Goal Directed Thought content: Future oriented - Physical Health Problems Is patient presently having any pain?: No Does patient presently have any injuries (include location): No Does patient currently have a fever: No COWS - Scale Resting Pulse: 0= [place] 80 or Below Sweatin= Chills/Flushing Restless Observation: 3= Extraneous Movement Pupil Size: 2= Moderately Dilated (Pupils = 3 mm) Bone or Joint Aches: 1= Mild Discomfort Runny Nose/ Eye Tearin= Nasal Congestion GI Upset > 30mins: 0= None Tremor Observation: 2= Slight Tremor Visible Yawning Observation: 0= None Anxiety or Irritability: 2=Irritable/Anxious Goose Flesh Skin: 0=Smooth Skin COWS Score: 12 CIWA Nausea/Vomitin-No Nausea/No Vomiting Muscle Tremors: 3 Anxiety: 3 Agitation: 3 Paroxysmal Sweats: 1-Minimal Palms Moist Orientation: 0-Oriented Tacttile Disturbances: 0-None Auditory Disturbances: 0-None Visual Disturbances: 0-None Headache: 0-None Present CIWA-Ar Total Score: 10
--- NOTE | 2020-03-05 17:42 | HP ---
COWS - Scale Resting Pulse: 0= [place] 80 or Below Sweatin= Chills/Flushing Restless Observation: 3= Extraneous Movement Pupil Size: 2= Moderately Dilated (Pupils = 3 mm) Bone or Joint Aches: 1= Mild Discomfort Runny Nose/ Eye Tearin= Nasal Congestion GI Upset > 30mins: 0= None Tremor Observation: 2= Slight Tremor Visible Yawning Observation: 0= None Anxiety or Irritability: 2=Irritable/Anxious Goose Flesh Skin: 0=Smooth Skin COWS Score: 12 CIWA Score Nausea/Vomitin-No Nausea/No Vomiting Muscle Tremors: 3 Anxiety: 3 Agitation: 3 Paroxysmal Sweats: 1-Minimal Palms Moist Orientation: 0-Oriented Tacttile Disturbances: 0-None Auditory Disturbances: 0-None Visual Disturbances: 0-None Headache: 0-None Present CIWA-Ar Total Score: 10 - Admission Criteria OASAS Guidelines: Admission for Medically Managed Detox: Requires at least one of the followin. CIWA greater than 12 2. Seizures within the past 24 hours 3. Delirium tremens within the past 24 hours 4. Hallucinations within the past 24 hours 5. Acute intervention needed for co occurring medical disorder 6. Acute intervention needed for co occurring psychiatric disorder 7. Severe withdrawal that cannot be handled at a lower level of care (continued vomiting, continued diarrhea, abnormal vital signs) requiring intravenous medication and/or fluids 8. Admitting History and Physical - Past Medical History Hepatobiliary: Yes: Hepatitis C Infectious Disease: Yes: STD's (gential herpes no outbreak in two years) Psych: Yes: Depression, Other (PTSD) Musculoskeletal: Yes: Chronic low back pain - Past Surgical History Past Surgical History: Yes: None - Smoking History Smoking history: Current every day smoker Have you smoked in the past 12 months: Yes Aproximately how many cigarettes per day: 10 - Alcohol/Substance Use Hx Alcohol Use: Yes - Social History ADL: Independent History of Recent Travel: No Admission ROS S - HPI Chief Complaint: "I'm here to detox from heroin and alcohol cause they're killing my a and I'm tired" Allergies/Adverse Reactions: Allergies Allergy/AdvReac Type Severity Reaction Status Date / Time cefazolin sodium [From Anc] Allergy Severe Swelling & Verified 03/05/20 18:57 HIVES fish derived Allergy Mild Hives Verified 03/05/20 18:57 shellfish derived Allergy Mild Hives Verified 03/05/20 18:57 mustard Allergy Mild Hives Uncoded 03/05/20 18:57 SEAFOOD Allergy Mild Hives Uncoded 03/05/20 18:57 History of Present Illness: 44 yo w/ opioid withdrawal and alcohol and cocaine use disorder. Denies seizures or blackouts. Last overdose 6 months. BREE: 0.0 UTox+ ANGELLA/FEN/MOP/MTD/BZO Discussed patients' frequent AMA'S na d he states he really needs his opportunity. Heroin use began at age 22. Currently uses 12 bags/Daily/Injection. Last use today. Does not have a Narcan kit at home. Cocaine- Powder use began at age 14. Currently uses $60/Daily/Injection Methadone use began at age 14. Currently uses sips/Less than 3 times per week Nicotine use began at age 11. Currently smokes 15 cig/day/ Alcohol use began at age 11. Currently drinks 4-20 oz beers/Daily Denies known BZO use [facility] - is PCP. Dr. Delaney PMHx: Heart murmur. MHHx: Insomnia. Denies thoughts of harming self or others. SHx: Undomiciled. Unemployed. Denies current legal issues. Patient Name: Mart Wagner Date: 1975 Address: [place] [address] Sex: Male Rx Written Rx Dispensed Drug Quantity Days Supply Prescriber Name Payment Method Dispenser 03/01/2020 03/02/2020 chlordiazepoxide 25 mg capsule 8 2 Fortino Roman) Medicaid [facility] 09/02/2019 09/03/2019 chlordiazepoxide 25 mg capsule 8 2 Pipe Delaney Medicaid [facility] Date: 1975 Address: [address] [place] [id number] Sex: Male Rx Written Rx Dispensed Drug Quantity Days Supply Prescriber Name Payment Method Dispenser 05/13/2019 05/13/2019 buprenorphine-naloxone 8-2 mg sl film 14 7 Manuel Glass MD [facility] #[id number] 04/28/2019 04/28/2019 suboxone 8 mg-2 mg sl film 28 14 Manuel Glass MD [facility] #[id number] 04/25/2019 04/25/2019 suboxone 8 mg-2 mg sl film 6 3 Manuel Glass MD [facility] #[id number] 04/15/2019 04/17/2019 suboxone 8 mg-2 mg sl film 14 7 Manuel Glass MD [facility] #[id number] 04/10/2019 04/10/2019 suboxone 8 mg-2 mg sl film 14 7 Manuel Glass MD [facility] #[id number] 04/01/2019 04/01/2019 suboxone 8 mg-2 mg sl film 14 7 Manuel Glass MD [facility] #[id number] 03/24/2019 03/24/2019 suboxone 8 mg-2 mg sl film 14 7 Manuel Glass MD [facility] #[id number] Exam Limitations: No Limitations - Ebola screening Have you traveled outside of the country in the last 21 days: No (Denies COVID) Have you had contact with anyone from an Ebola affected area: No Have you been sick,other than usual withdrawal symptoms: No Do you have a fever: No - Review of Systems Constitutional: Diaphoresis, Changes in sleep (Difficulty falling and staying asleep - takes Remeron from [facility] -) EENT: reports: Blurred Vision, Nose Congestion Respiratory: reports: No Symptoms reported Cardiac: reports: Other (Murmur) GI: reports: No Symptoms Reported : reports: No Symptoms Reported Musculoskeletal: reports: Back Pain (Chronic LBP - knotting pain "4". Increases w/ standing too long, Improves w/ rest and 'substances") Integumentary: reports: No Symptoms Reported Neuro: reports: No Symptoms reported Endocrine: reports: Increased Thirst Hematology: reports: No Symptoms Reported Psychiatric: reports: Judgement Intact, Orientated x3, Agitated, Anxious Patient History - Patient Medical History Hx Anemia: No Hx Asthma: No Hx Chronic Obstructive Pulmonary Disease (COPD): No Hx Cancer: No Hx Cardiac Disorders: No Hx Congestive Heart Failure: No Hx Hypertension: No Hx Hypercholesterolemia: No Hx Pacemaker: No HX Cerebrovascular Accident: No Hx Seizures: No Hx Dementia: No Hx Diabetes: No Hx Gastrointestinal Disorders: No Hx Liver Disease: No Hx Genitourinary Disorders: No Hx Sexually Transmitted Disorders: No Hx Renal Disease (ESRD): No Hx Thyroid Disease: No Hx Human Immunodeficiency Virus (HIV): No (jan 2012- negative) Hx Hepatitis C: Yes (tx with inf and ribavirin x 6m) Hx Depression: Yes Hx Suicide Attempt: No Hx Bipolar Disorder: Yes Hx Schizophrenia: No - Patient Surgical History Past Surgical History: No Hx Neurologic Surgery: No Hx Cataract Extraction: No Hx Cardiac Surgery: No Hx Lung Surgery: No Hx Breast Surgery: No Hx Breast Biopsy: No Hx Abdominal Surgery: No Hx Appendectomy: No Hx Cholecystectomy: No Hx Genitourinary Surgery: No Hx Section: No Hx Orthopedic Surgery: No Anesthesia Reaction: No - PPD History Previous Implant?: Yes Documented Results: Negative w/proof Implanted On Prior [facility] Admission?: Yes Date: 07/31/19 Results: 0MM PPD to be Administered?: No - Smoking Cessation Smoking history: Current every day smoker Have you smoked in the past 12 months: Yes Aproximately how many cigarettes per day: 15 Cigars Per Day: 0 Hx Chewing Tobacco Use: No Initiated information on smoking cessation: Yes 'Breaking Loose' booklet given: 03/05/20 - Substance & Tx. History Hx Alcohol Use: Yes Hx Substance Use: Yes Substance Use Type: Alcohol, Cocaine, Heroin, Opiates Hx Substance Use Treatment: Yes (detox, rehab, suboxone and methadone programns in the past) Admission Physical Exam BHS - Vital Signs Vital Signs: Vital Signs - 24 hr 03/05/20 17:09 Temperature 97.3 F L Pulse Rate 62 Respiratory 18 Rate Blood Pressure 114/66 - Physical General Appearance: Yes: Nourished, Mild Distress, Tremorous, Sweating (Increased facial moisture), Anxious HEENTM: Yes: EOMI, Hearing grossly Normal, Normocephalic, Normal Voice, DAMION (Pupils = 3 mm), Pharynx Normal, Other (thickened saliva and dry mucous membranes) Respiratory: Yes: Lungs Clear, Normal Breath Sounds, No Respiratory Distress Neck: Yes: No masses,lesions,Nodules, Supple Breast: Yes: Within Normal Limits Cardiology: Yes: Regular Rhythm, S1, S2, Bradycardia (HR: 56), Murmur Abdominal: Yes: Flat, Soft, Increased Bowel Sounds, Tenderness (RUQ- no guarding, no rebound.) Genitourinary: Yes: Within Normal Limits Back: Yes: Normal Inspection Musculoskeletal: Yes: full range of Motion, Gait Steady Extremities: Yes: Normal Capillary Refill, Tremors 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: communications programmer II-XII NML intact, Fully Oriented, Alert, Motor Strength 5/5, Normal Mood/Affect, Normal Response Integumentary: Yes: Normal Color, Warm, Track Alexander (Bilateral antecubital area. w/o increased warmth or erythema), Other (Decreased skin turgor) Lymphatic: Yes: Within Normal Limits - Diagnostic (1) Alcohol dependence with withdrawal, uncomplicated Current Visit: Yes Status: Acute (2) Track alexander due to intravenous drug abuse Current Visit: Yes Status: Chronic (3) Opioid dependence with withdrawal Current Visit: Yes Status: Acute (4) Cocaine dependence Current Visit: Yes Status: Chronic (5) Nicotine dependence Current Visit: Yes Status: Chronic Cleared for Admission [facility] - Detox or Rehab [facility] Level of Care: Medically Managed Detox Regimen/Protocol: Methadone/Valium Claeared for Rehab Admission: No Breathalyzer - Breathalyzer Breathalyzer: 0 Urine Drug Screen - Test Device Lot number: [id number] Expiration date: 01/19/22 - Control Is test valid?: Yes - Results Drug screen NEGATIVE: No Urine drug screen results: ANGELLA-Cocaine, FEN-Fentanyl, MOP-Opiates, MTD- Methadone, BZO-Benzodiazepines Inpatient Rehab Admission - Rehab Decision to Admit Inpatient rehab admission?: No
[2020-03-05] MEDS ORDERED: diazePAM 5 MG TABLET PO ONE ×2 (18:14→18:24)
[2020-03-05] MEDS ORDERED: cloNIDine HCL 0.1 MG TABLET PO PRN ×2 (18:14→18:24)
[2020-03-05] MEDS ORDERED: MAGNESIUM HYDROX 2400MG/30ML ORAL SUSPENSION 30 ML CUP PO PRN ×2 (18:14→18:24)
[2020-03-05] MEDS ORDERED: NICOTINE POLACRILEX 2 MG GUM BUC PRN ×2 (18:14→18:24)
[2020-03-05] MEDS ORDERED: hydrOXYzine PAMOATE 25 MG CAPSULE (FP) PO PRN ×2 (18:14→18:24)
[2020-03-05] MEDS ORDERED: METHADONE HCL 10 MG TABLET (FOR DETOX USE ONLY) PO ONE ×3 (18:14→23:00)
[2020-03-05] MEDS ORDERED: BISMUTH SUBSALICYLATE 524 MG/30 ML UD PO PRN ×2 (18:14→18:24)
[2020-03-05] MEDS ORDERED: MENTHOL/PHENOL 1 EACH UD MM PRN ×2 (18:14→18:24)
[2020-03-05] MEDS ORDERED: METHOCARBAMOL 500 MG TABLET PO PRN ×2 (18:14→18:24)
[2020-03-05] MEDS ORDERED: MAGNESIUM CITRATE 300 ML BOTTLE PO PRN ×2 (18:14→18:24)
[2020-03-05] MEDS ORDERED: IBUPROFEN 400 MG TABLET (FP) PO PRN ×2 (18:14→18:24)
[2020-03-05] MEDS ORDERED: ACETAMINOPHEN 325 MG TABLET (FP) PO PRN ×4 (18:14→18:24)
[2020-03-05] MEDS ORDERED: MAG HYDROX/AL HYDROX/SIMETH 30 ML UNIT-DOSE CUP PO PRN ×2 (18:14→18:24)
[2020-03-05] MEDS ORDERED: ONDANSETRON *ODT* 4 MG TABLET SL PRN ×2 (18:14→18:24)
[2020-03-05] MEDS ORDERED: diazePAM 5 MG TABLET PO PRN (18:14)
[2020-03-05] MEDS ORDERED: THIAMINE HCL 100 MG TABLET (FP) PO SCH (22:00)
[2020-03-05] MEDS ORDERED: MELATONIN 5 MG TABLETS PO SCH (22:00)
[2020-03-05] MEDS: MELATONIN 5 MG TABLETS PO SCH (22:29)
[2020-03-05] MEDS: diazePAM 5 MG TABLET PO SCH (22:29)
[2020-03-05] MEDS: THIAMINE HCL 100 MG TABLET (FP) PO SCH (22:29)
[2020-03-05] MEDS ORDERED: diazePAM 5 MG TABLET PO SCH (23:00)
[2020-03-06] MEDS: diazePAM 5 MG TABLET PO SCH ×4 (06:14→23:12)
[2020-03-06] MEDS ORDERED: METHADONE HCL 5 MG TABLET (FOR DETOX USE ONLY) ONE (08:33)
[2020-03-06] MEDS ORDERED: METHADONE HCL 10 MG TABLET (FOR DETOX USE ONLY) ONE (08:34)
[2020-03-06 09:20] LABS: HEMATOCRIT 38.8 % (35.4-49); HEMOGLOBIN 12.6 GM/dL (11.7-16.9); MCH 28.1 pg (25.7-33.7); MCHC 32.5 g/dl (32.0-35.9); MEAN CELL VOLUME 86.3 fl (80-96); MEAN PLT VOLUME 9.6 fl (7.5-11.1); PLATELET COUNT 214 K/MM3 (134-434); WHITE BLOOD COUNT 5.3 K/mm3 (4.0-10.0)
[2020-03-06 09:21] LABS: ALBUMIN 2.8 g/dl (3.4-5.0); BILIRUBIN,TOTAL 0.6 mg/dL (0.2-1); BLOOD UREA NITROGEN 8.8 mg/dL (7-18); CALCIUM 8.2 mg/dL (8.5-10.1); CREATININE 0.8 mg/dL (0.55-1.3); POTASSIUM 4.4 mmol/L (3.5-5.1); TOT PROT 6.3 g/dl (6.4-8.2)
[2020-03-06] MEDS ORDERED: PRENATAL VITAMINS W/ FOLIC ACID TABLET (FP) PO SCH (10:00)
[2020-03-06] MEDS ORDERED: METHADONE (DETOX) 20 MG, METHADONE (DETOX) 5 MG PO ONE ×2 (10:00)
[2020-03-06] MEDS ORDERED: NICOTINE 21 MG/24 HOURS TOPICAL PATCH TD SCH (10:00)
[2020-03-06] MEDS: PANTOPRAZOLE 20 MG TABLET PO SCH (10:51)
[2020-03-06] MEDS: ASPIRIN COATED 81 MG TABLET.EC PO SCH (10:51)
[2020-03-06] MEDS: NICOTINE 14 MG/24 HOURS TOPICAL PATCH TD SCH (11:24)
[2020-03-06] MEDS: PRENATAL VITAMINS W/ FOLIC ACID TABLET (FP) PO SCH (11:24)
--- NOTE | 2020-03-06 11:30 | PN ---
[facility] CIWA - CIWA Score Nausea/Vomitin-No Nausea/No Vomiting Muscle Tremors: 3 Anxiety: 4-Mod. Anxious/Guarded Agitation: 3 Paroxysmal Sweats: 2 Orientation: 0-Oriented Tacttile Disturbances: 0-None Auditory Disturbances: 0-None Visual Disturbances: 0-None Headache: 0-None Present CIWA-Ar Total Score: 12 S COWS - Scale Resting Pulse: 0= [place] 80 or Below Sweatin= Chills/Flushing Restless Observation: 1= Difficult to Sit Still Pupil Size: 0= Normal to Room Light Bone or Joint Aches: 2= Severe Diffuse Aches Runny Nose/ Eye Tearin= None GI Upset > 30mins: 0= None Tremor Observation of Outstretched Hands: 2= Slight Tremor Visible Yawning Observation: 0= None Anxiety or Irritability: 2=Irritable/Anxious Goose Flesh Skin: 0=Smooth Skin COWS Score: 8 [facility] Progress Note (SOAP) Subjective: Complaints of sweats, anxiety, tremors, joints aches, and agitation. Objective: 03/06/20 11:29 Vital Signs 03/06/20 03/06/20 05:39 08:50 Temperature 97.3 F L 97.3 F L Pulse Rate 46 L 46 L Respiratory 20 18 Rate Blood Pressure 105/54 L 100/57 L O2 Sat by Pulse 100 97 Oximetry (%) Laboratory Last Values WBC 5.3 K/mm3 (4.0-10.0) 03/06/20 07:45 RBC 4.50 M/mm3 (4.00-5.60) 03/06/20 07:45 Hgb 12.6 GM/dL (11.7-16.9) 03/06/20 07:45 Hct 38.8 % (35.4-49) 03/06/20 07:45 MCV 86.3 fl (80-96) 03/06/20 07:45 MCH 28.1 pg (25.7-33.7) 03/06/20 07:45 MCHC 32.5 g/dl (32.0-35.9) 03/06/20 07:45 RDW 13.0 % (11.9-15.9) 03/06/20 07:45 Plt Count 214 K/MM3 (134-434) 03/06/20 07:45 MPV 9.6 fl (7.5-11.1) 03/06/20 07:45 Sodium 140 mmol/L (136-145) 03/06/20 07:45 Potassium 4.4 mmol/L (3.5-5.1) 03/06/20 07:45 Chloride 103 mmol/L (98-107) 03/06/20 07:45 Carbon Dioxide 34 mmol/L (21-32) H 03/06/20 07:45 Anion Gap 2 MMOL/L (8-16) L 03/06/20 07:45 BUN 8.8 mg/dL (7-18) 03/06/20 07:45 Creatinine 0.8 mg/dL (0.55-1.3) 03/06/20 07:45 Est GFR (CKD-EPI)AfAm 125.04 03/06/20 07:45 Est GFR (CKD-EPI)NonAf 107.88 03/06/20 07:45 Random Glucose 75 mg/dL (74-106) 03/06/20 07:45 Calcium 8.2 mg/dL (8.5-10.1) L 03/06/20 07:45 Total Bilirubin 0.6 mg/dL (0.2-1) 03/06/20 07:45 AST 14 U/L (15-37) L 03/06/20 07:45 ALT 16 U/L (13-61) 03/06/20 07:45 Alkaline Phosphatase 72 U/L (45-117) 03/06/20 07:45 Total Protein 6.3 g/dl (6.4-8.2) L 03/06/20 07:45 Albumin 2.8 g/dl (3.4-5.0) L 03/06/20 07:45 Labs noted. Assessment: 03/06/20 11:29 Alert and oriented x 3, in no acute distress. Full ROM, ambulating in the unit without assistance. Skin was to touch with any lesions. Withdrawal symptoms. Plan: Continue detox protocol.
[2020-03-06] MEDS: THIAMINE HCL 100 MG TABLET (FP) PO SCH (23:12)
[2020-03-06] MEDS: MELATONIN 5 MG TABLETS PO SCH (23:14)
[2020-03-07] MEDS ORDERED: diazePAM 5 MG TABLET PO SCH (06:00)
[2020-03-07] MEDS: diazePAM 5 MG TABLET PO SCH ×3 (07:53→22:47)
[2020-03-07] MEDS ORDERED: METHADONE HCL 10 MG TABLET (FOR DETOX USE ONLY) PO ONE ×2 (10:00)
[2020-03-07] MEDS: PANTOPRAZOLE 20 MG TABLET PO SCH (11:15)
[2020-03-07] MEDS: ASPIRIN COATED 81 MG TABLET.EC PO SCH (11:15)
[2020-03-07] MEDS: PRENATAL VITAMINS W/ FOLIC ACID TABLET (FP) PO SCH (11:15)
[2020-03-07] MEDS: NICOTINE 14 MG/24 HOURS TOPICAL PATCH TD SCH (11:16)
--- NOTE | 2020-03-07 17:05 | PN ---
[facility] CIWA - CIWA Score Nausea/Vomitin-Mild Nausea/No Vomiting Muscle Tremors: 2 Anxiety: 2 Agitation: 2 Paroxysmal Sweats: 2 Orientation: 0-Oriented Tacttile Disturbances: 0-None Auditory Disturbances: 0-None Visual Disturbances: 0-None Headache: 0-None Present CIWA-Ar Total Score: 9 [facility] COWS - Scale Resting Pulse: 0= [place] 80 or Below Sweatin= No chills or Flushing Restless Observation: 0= Sits Still Pupil Size: 0= Normal to Room Light Bone or Joint Aches: 1= Mild Discomfort Runny Nose/ Eye Tearin= Runny Nose/Eyes GI Upset > 30mins: 2= Nausea/Diarrhea Tremor Observation of Outstretched Hands: 2= Slight Tremor Visible Yawning Observation: 0= None Anxiety or Irritability: 2=Irritable/Anxious Goose Flesh Skin: 0=Smooth Skin COWS Score: 9 [facility] Progress Note (SOAP) Subjective: "Just waking up, can't say what sxs I have" Objective: 03/07/20 17:01 Last Vital Signs Temp Pulse Resp BP Pulse Ox 97.3 F L 50 L 16 100/62 100 03/07/20 12:32 03/07/20 12:32 03/07/20 12:32 03/07/20 12:32 03/07/20 09:34 Bradycardia noted: asymptomatic, monitor pulse/VS Laboratory Tests 03/05/20 03/06/20 03/06/20 19:15 07:45 07:45 WBC 5.3 RBC 4.50 Hgb 12.6 Hct 38.8 MCV 86.3 MCH 28.1 MCHC 32.5 RDW 13.0 Plt Count 214 MPV 9.6 Sodium 140 Potassium 4.4 Chloride 103 Carbon Dioxide 34 H Anion Gap 2 L BUN 8.8 Creatinine 0.8 Est GFR (CKD-EPI)AfAm 125.04 Est GFR (CKD-EPI)NonAf 107.88 Random Glucose 75 Calcium 8.2 L Total Bilirubin 0.6 AST 14 L ALT 16 Alkaline Phosphatase 72 Total Protein 6.3 L Albumin 2.8 L Syphilis Serology COVID-19 ([facility]BER) Not detected 03/06/20 07:45 WBC RBC Hgb Hct MCV MCH MCHC RDW Plt Count MPV Sodium Potassium Chloride Carbon Dioxide Anion Gap BUN Creatinine Est GFR (CKD-EPI)AfAm Est GFR (CKD-EPI)NonAf Random Glucose Calcium Total Bilirubin AST ALT Alkaline Phosphatase Total Protein Albumin Syphilis Serology Non-reactive COVID-19 ([facility]BER) Labs reviewed: hypoalbuminemia Assessment: 03/07/20 17:03 Withdrawal sxs Noted with hypoalbuminemia Plan: Continue detox Encourage PO water intake Hypoalbuminemia: encourage diet
[2020-03-07] MEDS: diazePAM 5 MG TABLET PO PRN (18:11)
[2020-03-07] MEDS: THIAMINE HCL 100 MG TABLET (FP) PO SCH (22:47)
[2020-03-07] MEDS: MELATONIN 5 MG TABLETS PO SCH (22:48)
[2020-03-08] MEDS ORDERED: diazePAM 5 MG TABLET PO SCH ×2 (06:00)
[2020-03-08 09:17] VITALS: BP 142/55; PULSE 51; TEMP 98.6
[2020-03-08] MEDS ORDERED: METHADONE HCL 10 MG TABLET (FOR DETOX USE ONLY) ONE (09:35)
[2020-03-08] MEDS ORDERED: METHADONE HCL 5 MG TABLET (FOR DETOX USE ONLY) ONE (09:35)
[2020-03-08] MEDS ORDERED: METHADONE (DETOX) 10 MG, METHADONE (DETOX) 5 MG PO ONE ×2 (10:00)
[2020-03-08] MEDS: NICOTINE 14 MG/24 HOURS TOPICAL PATCH TD SCH (10:18)
[2020-03-08] MEDS: PANTOPRAZOLE 20 MG TABLET PO SCH (10:19)
[2020-03-08] MEDS: ASPIRIN COATED 81 MG TABLET.EC PO SCH (10:19)
[2020-03-08] MEDS: diazePAM 5 MG TABLET PO PRN (10:20)
[2020-03-08] MEDS: PRENATAL VITAMINS W/ FOLIC ACID TABLET (FP) PO SCH (10:20)
--- NOTE | 2020-03-08 13:08 | PN ---
S Progress Note Note: pt states he wants to go home. pt states he is not ready for detox. Pt is still showing s/s of withdrawals, shakes, sweats, irritable, agitation. pt was explained he should stay for detox and he can risk relapse, seizures, DT, OD and/or loss. Pt chose to sign out AMA.
--- NOTE | 2020-03-08 13:20 | DS ---
[facility] Detox Discharge Summary Admission Date: 03/05/20 - History Present History: Alcohol Dependence, Cocaine Dependence, Opioid Dependence - Physical Exam Results Vital Signs: Vital Signs Temperature 98.6 F 03/08/20 08:30 Pulse Rate 51 L 03/08/20 08:30 Respiratory Rate 18 03/08/20 08:30 Blood Pressure 142/55 L 03/08/20 08:30 O2 Sat by Pulse Oximetry (%) 96 03/08/20 08:30 Pertinent Admission Physical Exam Findings: Vital Signs Temperature 98.6 F 03/08/20 08:30 Pulse Rate 51 L 03/08/20 08:30 Respiratory Rate 18 03/08/20 08:30 Blood Pressure 142/55 L 03/08/20 08:30 O2 Sat by Pulse Oximetry (%) 96 03/08/20 08:30 Laboratory Tests 03/05/20 03/06/20 03/06/20 19:15 07:45 07:45 WBC 5.3 RBC 4.50 Hgb 12.6 Hct 38.8 MCV 86.3 MCH 28.1 MCHC 32.5 RDW 13.0 Plt Count 214 MPV 9.6 Sodium 140 Potassium 4.4 Chloride 103 Carbon Dioxide 34 H Anion Gap 2 L BUN 8.8 Creatinine 0.8 Est GFR (CKD-EPI)AfAm 125.04 Est GFR (CKD-EPI)NonAf 107.88 Random Glucose 75 Calcium 8.2 L Total Bilirubin 0.6 AST 14 L ALT 16 Alkaline Phosphatase 72 Total Protein 6.3 L Albumin 2.8 L Syphilis Serology COVID-19 (HUBER) Not detected 03/06/20 07:45 WBC RBC Hgb Hct MCV MCH MCHC RDW Plt Count MPV Sodium Potassium Chloride Carbon Dioxide Anion Gap BUN Creatinine Est GFR (CKD-EPI)AfAm Est GFR (CKD-EPI)NonAf Random Glucose Calcium Total Bilirubin AST ALT Alkaline Phosphatase Total Protein Albumin Syphilis Serology Non-reactive COVID-19 (HUBER) aaox3 ambulating pt signed out AMA - Treatment Hospital Course: Rehab Referral Accepted - Medication Discharge Medications: Ambulatory Orders Aspirin [Aspirin EC] 81 mg PO DAILY 02/05/20 Glecaprevir/Pibrentasvir [Mavyret 100-40 mg Tablet] 3 each PO DAILY 02/05/20 Lamotrigine [Lamictal -] 100 mg PO DAILY 02/05/20 Mirtazapine 15 mg PO HS 02/05/20 Naproxen Sodium [Aleve] 220 mg PO ONCE PRN 02/05/20 - Diagnosis (1) Alcohol dependence with withdrawal, uncomplicated Status: Acute (2) Opioid dependence with withdrawal Status: Acute (3) Substance induced mood disorder Status: Acute (4) Substance-induced sleep disorder Status: Acute (5) Alcohol dependence, uncomplicated Status: Chronic (6) Alcohol use disorder Status: Chronic (7) Cocaine dependence Status: Chronic (8) Depression Status: Chronic Qualifiers: Major depression episode severity: unspecified (9) Heroin abuse Status: Chronic (10) History of posttraumatic stress disorder (PTSD) Status: Chronic (11) Insomnia Status: Chronic (12) Mood disorder Status: Chronic (13) Nicotine dependence Status: Chronic (14) Post traumatic stress disorder (PTSD) Status: Chronic (15) Track rivero due to intravenous drug abuse Status: Chronic (16) hep.c Status: Chronic - AMA Did Patient Leave Against Medical Advice: Yes
[2020-03-09] MEDS ORDERED: diazePAM 5 MG TABLET PO ONE ×2 (06:00)
[2020-03-09] MEDS ORDERED: METHADONE HCL 10 MG TABLET (FOR DETOX USE ONLY) PO ONE ×2 (10:00)
[2020-03-10] MEDS ORDERED: METHADONE HCL 5 MG TABLET (FOR DETOX USE ONLY) PO ONE ×2 (06:00)
== END 2020-03-08 11:25 | disposition left against medical advice (07) | DRG 770 ==
LOC: YASAS 15:14 → Y6N 18:29
PROVIDERS: ADMIT Allergy & Immunology; ATTEND Allergy & Immunology
PROC: HZ2ZZZZ Detoxification Services for Substance Abuse Treatment (ICD-10-PCS; principal; 2020-03-05)
PROC: HZ2ZZZZ Detoxification Services for Substance Abuse Treatment (ICD-10-PCS; 2020-03-05)
DX: F10.230 Alcohol dependence with withdrawal, uncomplicated (principal); F11.23 Opioid dependence with withdrawal; F14.20 Cocaine dependence, uncomplicated; F17.210 Nicotine dependence, cigarettes, uncomplicated; F19.282 Other psychoactive substance dependence with psychoactive substance-induced sleep disorder; F19.24 Other psychoactive substance dependence with psychoactive substance-induced mood disorder; F39 Unspecified mood [affective] disorder; F32.9 Major depressive disorder, single episode, unspecified; F43.10 Post-traumatic stress disorder, unspecified; E88.09 Other disorders of plasma-protein metabolism, not elsewhere classified; R00.1 Bradycardia, unspecified; M54.5 Low back pain; G89.29 Other chronic pain; Z88.5 Allergy status to narcotic agent; Z91.013 Allergy to seafood; Z91.018 Allergy to other foods; Z87.438 Personal history of other diseases of male genital organs; Z86.19 Personal history of other infectious and parasitic diseases
CPT/HCPCS: 36415; 80053; 85027; 86780; U0003

== ENCOUNTER 2020-07-26 12:18 | Inpatient (IN) | payer OTHER ==
[2020-07-26 17:00] VITALS: BMI 22.8
[2020-07-26] MEDS ORDERED: NICOTINE POLACRILEX 2 MG GUM BUC PRN (17:18)
[2020-07-26] MEDS ORDERED: MAGNESIUM HYDROX 2400MG/30ML ORAL SUSPENSION 30 ML CUP PO PRN (17:18)
[2020-07-26] MEDS ORDERED: BISMUTH SUBSALICYLATE 524 MG/30 ML UD PO PRN (17:18)
[2020-07-26] MEDS ORDERED: METHOCARBAMOL 500 MG TABLET PO PRN (17:18)
[2020-07-26] MEDS ORDERED: cloNIDine HCL 0.1 MG TABLET PO PRN (17:18)
[2020-07-26] MEDS ORDERED: METHADONE HCL 10 MG TABLET (FOR DETOX USE ONLY) PO ONE (17:18)
[2020-07-26] MEDS ORDERED: NALOXONE HCL 0.4 MG/ML VIAL IM PRN (17:18)
[2020-07-26] MEDS ORDERED: MENTHOL/PHENOL 1 EACH UD MM PRN (17:18)
[2020-07-26] MEDS ORDERED: MAG HYDROX/AL HYDROX/SIMETH 30 ML UNIT-DOSE CUP PO PRN (17:18)
[2020-07-26] MEDS ORDERED: ONDANSETRON *ODT* 4 MG TABLET SL PRN (17:18)
[2020-07-26] MEDS ORDERED: MAGNESIUM CITRATE 300 ML BOTTLE PO PRN (17:18)
[2020-07-26] MEDS ORDERED: NAPROXEN 500 MG TABLET PO PRN (17:26)
[2020-07-26] MEDS: hydrOXYzine PAMOATE 25 MG CAPSULE (FP) PO SCH ×2 (18:35→22:13)
[2020-07-26] MEDS: PRENATAL VITAMINS W/ FOLIC ACID TABLET (FP) PO SCH (18:35)
[2020-07-26] MEDS: NICOTINE 14 MG/24 HOURS TOPICAL PATCH TD SCH (18:40)
[2020-07-26] MEDS: VITAMINS A AND D TOPICAL OINTMENT 60 GM TUBE TP SCH ×2 (18:43→23:45)
[2020-07-26] MEDS: SIMETHICONE 80 MG TAB.CHEW (FP) PO SCH ×2 (18:43→22:13)
[2020-07-26] MEDS: DOCUSATE SODIUM 100 MG CAPSULE (FP) PO SCH (22:13)
[2020-07-26] MEDS: SENNOSIDES 8.6MG TABLET (FP) PO SCH (22:13)
[2020-07-26] MEDS: THIAMINE HCL 100 MG TABLET (FP) PO SCH (22:14)
[2020-07-26] MEDS: MELATONIN 5 MG TABLETS PO SCH (22:14)
[2020-07-26] MEDS: SODIUM CHLORIDE NASAL SPRAY 44 ML BOTTLE NS SCH (22:14)
[2020-07-26] MEDS: MIRTAZAPINE 15 MG TABLET (FP) PO SCH (22:14)
[2020-07-27] MEDS: SODIUM CHLORIDE NASAL SPRAY 44 ML BOTTLE NS SCH ×3 (05:49→22:41)
[2020-07-27] MEDS: hydrOXYzine PAMOATE 25 MG CAPSULE (FP) PO SCH ×5 (05:49→22:45)
[2020-07-27] MEDS: VITAMINS A AND D TOPICAL OINTMENT 60 GM TUBE TP SCH ×4 (05:49→22:56)
[2020-07-27] MEDS ORDERED: lamoTRIgine 100 MG TABLET PO SCH (10:00)
[2020-07-27] MEDS ORDERED: METHADONE (DETOX) 20 MG, METHADONE (DETOX) 5 MG PO ONE (10:00)
[2020-07-27] MEDS ORDERED: METHADONE HCL 10 MG TABLET (FOR DETOX USE ONLY) ONE (10:01)
[2020-07-27] MEDS ORDERED: METHADONE HCL 5 MG TABLET (FOR DETOX USE ONLY) ONE (10:02)
[2020-07-27] MEDS: PRENATAL VITAMINS W/ FOLIC ACID TABLET (FP) PO SCH (10:39)
[2020-07-27] MEDS: NICOTINE 14 MG/24 HOURS TOPICAL PATCH TD SCH (10:40)
[2020-07-27] MEDS: SIMETHICONE 80 MG TAB.CHEW (FP) PO SCH ×4 (10:40→22:41)
[2020-07-27 11:57] LABS: HEMATOCRIT 35.7 % (35.4-49); HEMOGLOBIN 11.6 GM/dL (11.7-16.9); MCH 26.8 pg (25.7-33.7); MCHC 32.4 g/dl (32.0-35.9); MEAN CELL VOLUME 82.6 fl (80-96); MEAN PLT VOLUME 8.7 fl (7.5-11.1); PLATELET COUNT 588 K/MM3 (134-434); RBC 4.32 M/mm3 (4.00-5.60); RDW 14.7 % (11.9-15.9); WHITE BLOOD COUNT 7.7 K/mm3 (4.0-10.0)
[2020-07-27 12:00] LABS: CALCIUM 8.4 mg/dL (8.5-10.1)
[2020-07-27 12:01] LABS: ALBUMIN 2.8 g/dl (3.4-5.0); BLOOD UREA NITROGEN 12.4 mg/dL (7-18)
[2020-07-27 12:04] LABS: CREATININE 0.7 mg/dL (0.55-1.3)
[2020-07-27 12:06] LABS: BILIRUBIN,TOTAL 0.2 mg/dL (0.2-1)
[2020-07-27] MEDS: MIRTAZAPINE 15 MG TABLET (FP) PO SCH (22:41)
[2020-07-27] MEDS: THIAMINE HCL 100 MG TABLET (FP) PO SCH (22:41)
[2020-07-27] MEDS: SENNOSIDES 8.6MG TABLET (FP) PO SCH (22:41)
[2020-07-27] MEDS: DOCUSATE SODIUM 100 MG CAPSULE (FP) PO SCH (22:41)
[2020-07-27] MEDS: MELATONIN 5 MG TABLETS PO SCH (22:42)
[2020-07-28] MEDS: VITAMINS A AND D TOPICAL OINTMENT 60 GM TUBE TP SCH (07:04)
[2020-07-28] MEDS: hydrOXYzine PAMOATE 25 MG CAPSULE (FP) PO SCH (07:04)
[2020-07-28] MEDS: SODIUM CHLORIDE NASAL SPRAY 44 ML BOTTLE NS SCH (07:04)
[2020-07-28 07:43] VITALS: BP 121/68; PULSE 46; TEMP 98.2
[2020-07-28] MEDS ORDERED: METHADONE HCL 10 MG TABLET (FOR DETOX USE ONLY) PO ONE (10:00)
[2020-07-29] MEDS ORDERED: METHADONE (DETOX) 10 MG, METHADONE (DETOX) 5 MG PO ONE (10:00)
[2020-07-30] MEDS ORDERED: METHADONE HCL 10 MG TABLET (FOR DETOX USE ONLY) PO ONE (10:00)
[2020-07-31] MEDS ORDERED: METHADONE HCL 5 MG TABLET (FOR DETOX USE ONLY) PO ONE (06:00)
== END 2020-07-28 08:54 | disposition left against medical advice (07) | DRG 770 ==
LOC: YASAS 12:18 → Y3N 17:27
PROVIDERS: ADMIT Allergy & Immunology; ATTEND Allergy & Immunology
PROC: HZ2ZZZZ Detoxification Services for Substance Abuse Treatment (ICD-10-PCS; principal; 2020-07-26)
DX: F11.23 Opioid dependence with withdrawal (principal); F10.230 Alcohol dependence with withdrawal, uncomplicated; F14.20 Cocaine dependence, uncomplicated; F17.210 Nicotine dependence, cigarettes, uncomplicated; F19.282 Other psychoactive substance dependence with psychoactive substance-induced sleep disorder; F19.24 Other psychoactive substance dependence with psychoactive substance-induced mood disorder; F31.9 Bipolar disorder, unspecified; F43.10 Post-traumatic stress disorder, unspecified; F39 Unspecified mood [affective] disorder; B18.2 Chronic viral hepatitis C; M54.5 Low back pain; G89.29 Other chronic pain; Z87.438 Personal history of other diseases of male genital organs; Z90.81 Acquired absence of spleen; Z87.828 Personal history of other (healed) physical injury and trauma; Z88.1 Allergy status to other antibiotic agents; Z91.013 Allergy to seafood; Z56.0 Unemployment, unspecified; Z59.0 Homelessness
CPT/HCPCS: 36415; 80053; 85027; 86780; 93005; 93010; C9803; J0735; U0003

== ENCOUNTER 2024-03-12 13:35 | Inpatient (IN) | payer OTHER ==
[2024-03-12 14:47] VITALS: BMI 23.5
[2024-03-12] MEDS ORDERED: hydrOXYzine PAMOATE 25 MG CAPSULE (FP) PO PRN (15:17)
[2024-03-12] MEDS ORDERED: guaiFENesin 600 MG TABLET.ER (FP) PO PRN (15:17)
[2024-03-12] MEDS ORDERED: LOPERAMIDE HCL 2 MG CAPSULE PO PRN (15:17)
[2024-03-12] MEDS ORDERED: NICOTINE POLACRILEX 2 MG LOZENGE BC PRN (15:17)
[2024-03-12] MEDS ORDERED: NICOTINE POLACRILEX 2 MG GUM BUC PRN (15:17)
[2024-03-12] MEDS ORDERED: BENZONATATE 200 MG CAPSULE PO PRN (15:17)
[2024-03-12] MEDS ORDERED: P-EPHED 60MG/TRIPROLIDI 2.5MG TABLET PO PRN (15:17)
[2024-03-12] MEDS ORDERED: POLYETHYLENE GLYCOL (HEALTHYLAX) 3350 17 GM PACKET PO PRN (15:17)
[2024-03-12] MEDS ORDERED: MAG HYDROX/AL HYDROX/SIMETH 30 ML UNIT-DOSE CUP PO PRN (15:17)
[2024-03-12] MEDS ORDERED: NALOXONE (NARCAN) HCL 4 MG/0.1 ML SPRAY NS PRN (15:17)
[2024-03-12] MEDS ORDERED: ACETAMINOPHEN 325 MG TABLET (FP) PO PRN (15:17)
[2024-03-12] MEDS ORDERED: IBUPROFEN 400 MG TABLET (FP) PO PRN (15:17)
[2024-03-12] MEDS ORDERED: BENZOCAINE/MENTHOL (CHLORASEPTIC ) LOZENGE MM PRN (15:17)
[2024-03-12] MEDS ORDERED: MAGNESIUM HYDROX 2400MG/30ML ORAL SUSPENSION 30 ML CUP PO PRN (15:17)
[2024-03-12] MEDS ORDERED: NALOXONE HCL 0.4 MG/ML VIAL IM PRN (15:17)
[2024-03-12] MEDS ORDERED: IBUPROFEN 600 MG TABLET (FP) PO PRN (15:17)
[2024-03-12] MEDS ORDERED: SENNOSIDES 8.6MG TABLET (FP) PO PRN (17:18)
[2024-03-12] MEDS ORDERED: NAPROXEN 500 MG TABLET PO PRN (17:18)
[2024-03-12] MEDS: MELATONIN 5 MG TABLETS PO SCH (21:08)
[2024-03-12] MEDS: THIAMINE 100 MG TABLET PO SCH (21:08)
[2024-03-12] MEDS: DOCUSATE SODIUM 100 MG CAPSULE (FP) PO SCH (21:09)
[2024-03-12 22:09] LABS: URINE APPEARANCE CLEAR; URINE BILIRUBIN NEGATIVE (NEGATIVE); URINE COLOR DK YELLOW; URINE GLUCOSE (UA) NEGATIVE (NEGATIVE); URINE KETONE 1+ (NEGATIVE); URINE LEUK ESTERASE NEGATIVE (NEGATIVE); URINE NITRITE NEGATIVE (NEGATIVE); URINE PROTEIN TRACE (NEGATIVE)
[2024-03-13 06:22] VITALS: RESP 18
[2024-03-13] MEDS: BUPRENORPHINE/NALOXONE 8 MG/2 MG FILM PACKET SL ONE (07:14)
[2024-03-13] MEDS ORDERED: BUPRENORPHINE/NALOXONE 8 MG/2 MG FILM PACKET SL ONE (08:00)
[2024-03-13 08:58] VITALS: BP 131/75; PULSE 62; TEMP 96.9
[2024-03-13] MEDS: PRENATAL VITAMINS W/ FOLIC ACID TABLET (FP) PO SCH (10:34)
[2024-03-13 11:33] LABS: HEMATOCRIT 40.6 % (35.4-49); HEMOGLOBIN 13.3 GM/dL (11.7-16.9); MCH 28.3 pg (25.7-33.7); MCHC 32.9 g/dl (32.0-35.9); MEAN PLT VOLUME 8.7 fl (7.5-11.1); PLATELET COUNT 553 10^3/uL (134-434); RBC 4.72 M/mm3 (4.00-5.60); RDW 14.2 % (11.9-15.9)
[2024-03-13 13:12] LABS: POTASSIUM 4.5 mmol/L (3.5-5.1)
[2024-03-13 13:24] LABS: CALCIUM 9.1 mg/dL (8.5-10.1)
[2024-03-13 13:25] LABS: ALBUMIN 3.2 g/dl (3.4-5.0); BLOOD UREA NITROGEN 9.5 mg/dL (7-18)
[2024-03-13 13:28] LABS: CREATININE 0.6 mg/dL (0.55-1.3)
[2024-03-13 13:30] LABS: BILIRUBIN,TOTAL 0.6 mg/dL (0.2-1); TOT PROT 6.6 g/dl (6.4-8.2)
[2024-03-14] MEDS ORDERED: BUPRENORPHINE/NALOXONE 8 MG/2 MG FILM PACKET SL SCH (10:00)
== END 2024-03-13 11:28 | disposition home or self-care (01) | DRG 772 ==
LOC: YASAS 13:35 → Y3NR 17:08
PROVIDERS: ADMIT Psychiatry & Neurology Pain Medicine; ATTEND Psychiatry & Neurology Pain Medicine
PROC: HZ42ZZZ Group Counseling for Substance Abuse Treatment, Cognitive-Behavioral (ICD-10-PCS; principal; 2024-03-12)
DX: F11.20 Opioid dependence, uncomplicated (principal); F14.20 Cocaine dependence, uncomplicated; F12.10 Cannabis abuse, uncomplicated; F17.210 Nicotine dependence, cigarettes, uncomplicated; F19.282 Other psychoactive substance dependence with psychoactive substance-induced sleep disorder; F19.24 Other psychoactive substance dependence with psychoactive substance-induced mood disorder; F32.A Depression, unspecified; M54.50 Low back pain, unspecified; G89.29 Other chronic pain; Z86.19 Personal history of other infectious and parasitic diseases; Z88.8 Allergy status to other drugs, medicaments and biological substances
CPT/HCPCS: 36415; 80053; 80305; 80307; 81003; 85027; 86780; 87811; 93005; 93010

== ENCOUNTER 2024-03-13 11:32 | Inpatient (IN) | payer OTHER ==
[2024-03-13] MEDS ORDERED: DICYCLOMINE HCL 10 MG CAPSULE PO PRN (12:08)
[2024-03-13] MEDS ORDERED: IBUPROFEN 600 MG TABLET (FP) PO PRN (12:08)
[2024-03-13] MEDS ORDERED: NALOXONE HCL 0.4 MG/ML VIAL IM PRN (12:08)
[2024-03-13] MEDS ORDERED: BUPRENORPHINE HCL 150 MCG, BUPRENORPHINE HCL 75 MCG BC PRN (12:08)
[2024-03-13] MEDS ORDERED: MAG HYDROX/AL HYDROX/SIMETH 30 ML UNIT-DOSE CUP PO PRN (12:08)
[2024-03-13] MEDS ORDERED: METHOCARBAMOL 500 MG TABLET PO PRN (12:08)
[2024-03-13] MEDS ORDERED: LOPERAMIDE HCL 2 MG CAPSULE PO PRN (12:08)
[2024-03-13] MEDS ORDERED: BENZONATATE 200 MG CAPSULE PO PRN (12:08)
[2024-03-13] MEDS ORDERED: ONDANSETRON *ODT* 4 MG TABLET SL PRN (12:08)
[2024-03-13] MEDS ORDERED: BISMUTH SUBSALICYLATE 524 MG/30 ML PO PRN (12:08)
[2024-03-13] MEDS ORDERED: NICOTINE POLACRILEX 2 MG LOZENGE BC PRN (12:08)
[2024-03-13] MEDS ORDERED: ACETAMINOPHEN 325 MG TABLET (FP) PO PRN (12:08)
[2024-03-13] MEDS ORDERED: guaiFENesin 600 MG TABLET.ER (FP) PO PRN (12:08)
[2024-03-13] MEDS ORDERED: BENZOCAINE/MENTHOL (CHLORASEPTIC ) LOZENGE MM PRN (12:08)
[2024-03-13] MEDS ORDERED: POLYETHYLENE GLYCOL (HEALTHYLAX) 3350 17 GM PACKET PO PRN (12:08)
[2024-03-13] MEDS ORDERED: IBUPROFEN 400 MG TABLET (FP) PO PRN (12:08)
[2024-03-13] MEDS ORDERED: hydrOXYzine PAMOATE 25 MG CAPSULE (FP) PO PRN (12:08)
[2024-03-13] MEDS ORDERED: MAGNESIUM HYDROX 2400MG/30ML ORAL SUSPENSION 30 ML CUP PO PRN (12:08)
[2024-03-13] MEDS ORDERED: NALOXONE (NARCAN) HCL 4 MG/0.1 ML SPRAY NS PRN (12:08)
[2024-03-13] MEDS ORDERED: diazePAM 5 MG TABLET PO PRN (12:08)
[2024-03-13] MEDS: cloNIDine HCL 0.1 MG TABLET PO ONE (13:19)
[2024-03-13] MEDS: BUPRENORPHINE HCL 150 MCG, BUPRENORPHINE HCL 75 MCG BC ONE (13:45)
[2024-03-13] MEDS: lamoTRIgine 25 MG TABLET PO SCH (17:18)
[2024-03-13] MEDS: MELATONIN 5 MG TABLETS PO SCH (22:20)
[2024-03-13] MEDS: QUEtiapine FUMARATE 100 MG TABLET (FP) PO SCH (22:20)
[2024-03-13] MEDS: MIRTAZAPINE 15 MG TABLET (FP) PO SCH (22:20)
[2024-03-13] MEDS: THIAMINE 100 MG TABLET PO SCH (22:20)
[2024-03-13] MEDS: NAPROXEN 500 MG TABLET PO SCH (22:20)
[2024-03-14] MEDS: BUPRENORPHINE HCL 150 MCG, BUPRENORPHINE HCL 75 MCG BC SCH (06:54)
[2024-03-14 08:55] VITALS: RESP 18
[2024-03-14] MEDS: NICOTINE 14 MG/24 HOURS TOPICAL PATCH TD SCH (10:04)
[2024-03-14] MEDS: PRENATAL VITAMINS W/ FOLIC ACID TABLET (FP) PO SCH (10:06)
[2024-03-14] MEDS: cloNIDine HCL 0.1 MG TABLET PO PRN (10:06)
[2024-03-14] MEDS: BUPRENORPHINE HCL 150 MCG, BUPRENORPHINE HCL 75 MCG BC ONE (10:29)
[2024-03-14 12:39] VITALS: BP 120/84; PULSE 58; TEMP 97.8
[2024-03-14 13:39] LABS: HEMATOCRIT 42.1 % (35.4-49); HEMOGLOBIN 13.7 GM/dL (11.7-16.9); MCH 28.1 pg (25.7-33.7); MCHC 32.5 g/dl (32.0-35.9); MEAN CELL VOLUME 86.5 fl (80-96); MEAN PLT VOLUME 9.5 fl (7.5-11.1); PLATELET COUNT 485 10^3/uL (134-434); RBC 4.86 M/mm3 (4.00-5.60); WHITE BLOOD COUNT 9.9 K/mm3 (4.0-10.0)
[2024-03-14 14:04] LABS: POTASSIUM 4.5 mmol/L (3.5-5.1)
[2024-03-14 14:27] LABS: CALCIUM 9.2 mg/dL (8.5-10.1)
[2024-03-14 14:28] LABS: ALBUMIN 3.2 g/dl (3.4-5.0); BLOOD UREA NITROGEN 8.9 mg/dL (7-18)
[2024-03-14 14:31] LABS: CREATININE 0.6 mg/dL (0.55-1.3)
[2024-03-14 14:33] LABS: TOT PROT 6.7 g/dl (6.4-8.2)
[2024-03-14 14:34] LABS: BILIRUBIN,TOTAL 0.4 mg/dL (0.2-1)
[2024-03-14] MEDS: BUPRENORPHINE HCL 150 MCG, BUPRENORPHINE HCL 75 MCG BC PRN (14:35)
[2024-03-15] MEDS ORDERED: BUPRENORPHINE HCL 450 MCG FILM BC SCH (06:00)
[2024-03-16] MEDS ORDERED: BUPRENORPHINE/NALOXONE 4 MG/1 MG FILM PACKET SL SCH (06:00)
[2024-03-17] MEDS ORDERED: BUPRENORPHINE/NALOXONE 8 MG/2 MG FILM PACKET SL ONE (06:00)
== END 2024-03-14 15:31 | disposition left against medical advice (07) | DRG 770 ==
LOC: YASAS 11:32 → Y3N 11:37
PROVIDERS: ADMIT Allergy & Immunology; ATTEND Surgery
PROC: HZ2ZZZZ Detoxification Services for Substance Abuse Treatment (ICD-10-PCS; principal; 2024-03-13)
DX: F11.23 Opioid dependence with withdrawal (principal); F17.210 Nicotine dependence, cigarettes, uncomplicated; F14.20 Cocaine dependence, uncomplicated; F12.10 Cannabis abuse, uncomplicated; F19.282 Other psychoactive substance dependence with psychoactive substance-induced sleep disorder; F19.24 Other psychoactive substance dependence with psychoactive substance-induced mood disorder; F32.A Depression, unspecified; M54.50 Low back pain, unspecified; G89.29 Other chronic pain; Z86.2 Personal history of diseases of the blood and blood-forming organs and certain disorders involving the immune mechanism; Z86.19 Personal history of other infectious and parasitic diseases
CPT/HCPCS: 36415; 80053; 80307; 85027; 86780

== ENCOUNTER 2024-12-11 16:18 | Inpatient (IN) | payer OTHER ==
[2024-12-11 16:32] VITALS: BMI 24.1
[2024-12-11] MEDS ORDERED: DICYCLOMINE HCL 10 MG CAPSULE PO PRN (17:15)
[2024-12-11] MEDS ORDERED: LOPERAMIDE HCL 2 MG CAPSULE PO PRN (17:15)
[2024-12-11] MEDS ORDERED: NICOTINE POLACRILEX 2 MG LOZENGE BC PRN (17:15)
[2024-12-11] MEDS ORDERED: ONDANSETRON *ODT* 4 MG TABLET SL PRN (17:15)
[2024-12-11] MEDS ORDERED: NALOXONE (NARCAN) HCL 4 MG/0.1 ML SPRAY NS PRN (17:15)
[2024-12-11] MEDS ORDERED: BISMUTH SUBSALICYLATE 524 MG/30 ML PO PRN (17:15)
[2024-12-11] MEDS ORDERED: guaiFENesin 600 MG TABLET.ER (FP) PO PRN (17:15)
[2024-12-11] MEDS ORDERED: IBUPROFEN 600 MG TABLET (FP) PO PRN (17:15)
[2024-12-11] MEDS ORDERED: POLYETHYLENE GLYCOL (HEALTHYLAX) 3350 17 GM PACKET PO PRN (17:15)
[2024-12-11] MEDS ORDERED: IBUPROFEN 400 MG TABLET (FP) PO PRN (17:15)
[2024-12-11] MEDS ORDERED: BENZONATATE 200 MG CAPSULE PO PRN (17:15)
[2024-12-11] MEDS ORDERED: NICOTINE POLACRILEX 2 MG GUM BUC PRN (17:15)
[2024-12-11] MEDS ORDERED: MAG HYDROX/AL HYDROX/SIMETH 30 ML UNIT-DOSE CUP PO PRN (17:15)
[2024-12-11] MEDS ORDERED: METHOCARBAMOL 500 MG TABLET ONE (20:24)
[2024-12-11] MEDS: METHOCARBAMOL 500 MG TABLET PO PRN (20:24)
[2024-12-11] MEDS ORDERED: DOCUSATE SODIUM 100 MG CAPSULE (FP) PO PRN (20:26)
[2024-12-11] MEDS: NAPROXEN 500 MG TABLET PO SCH (22:16)
[2024-12-11] MEDS: THIAMINE 100 MG TABLET PO SCH (22:16)
[2024-12-11] MEDS: SULFAMETHOXAZOLE/TRIMETHOPRIM 800MG/160MG D.S. TABLET PO SCH (22:16)
[2024-12-11] MEDS: MELATONIN 5 MG TABLETS PO SCH (22:16)
[2024-12-11] MEDS: MIRTAZAPINE 15 MG TABLET (FP) PO ONE (22:16)
[2024-12-11] MEDS: GABAPENTIN 100 MG CAPSULE PO SCH (22:16)
[2024-12-11] MEDS: BENZOCAINE/MENTHOL (CHLORASEPTIC ) LOZENGE MM PRN (22:24)
[2024-12-12] MEDS: PRENATAL VITAMINS W/ FOLIC ACID TABLET (FP) PO SCH (09:39)
[2024-12-12 11:35] LABS: MCHC 31.0 g/dl (32.3-36.5); MEAN CELL VOLUME 88.8 fl (79.0-92.2); MEAN PLT VOLUME 11.3 fl (9.4-12.4); RDW 14.4 % (12.1-15.9)
[2024-12-12 11:49] LABS: CO2 31 mmol/L (21-32); GLUCOSE,RANDOM 137 mg/dL (74-106)
[2024-12-12 11:51] LABS: SGPT/ALT 114 U/L (13-61)
[2024-12-12 11:52] LABS: CREATININE 0.7 mg/dL (0.55-1.3); SGOT/AST 57 U/L (15-37)
[2024-12-12 11:53] LABS: TOT PROT 6.3 g/dl (6.4-8.2)
[2024-12-12 11:56] LABS: ALK PHOS 100 U/L (45-117)
[2024-12-12] MEDS: MIRTAZAPINE 15 MG TABLET (FP) PO SCH (21:59)
[2024-12-13 15:18] LABS: MCHC 30.5 g/dl (32.3-36.5); MEAN CELL VOLUME 90.6 fl (79.0-92.2); MEAN PLT VOLUME 11.8 fl (9.4-12.4); RDW 14.8 % (12.1-15.9)
[2024-12-13 15:24] LABS: CO2 31.0 mmol/L (21-32); GLUCOSE,RANDOM 90.0 mg/dL (74-106)
[2024-12-13 15:27] LABS: CREATININE 0.8 mg/dL (0.55-1.3); SGOT/AST 54.0 U/L (15-37); SGPT/ALT 116.0 U/L (13-61)
[2024-12-13 15:28] LABS: TOT PROT 6.8 g/dl (6.4-8.2)
[2024-12-13 15:29] LABS: ALK PHOS 94.0 U/L (45-117)
[2024-12-13] MEDS: ACETAMINOPHEN 325 MG TABLET (FP) PO PRN (15:38)
[2024-12-14] MEDS: MAGNESIUM HYDROX 2400MG/30ML ORAL SUSPENSION 30 ML CUP PO PRN (15:20)
[2024-12-14] MEDS: hydrOXYzine PAMOATE 25 MG CAPSULE (FP) PO PRN (19:41)
[2024-12-16 07:14] VITALS: RESP 16
[2024-12-16 08:35] VITALS: BP 114/73; PULSE 60; TEMP 97.1
== END 2024-12-16 10:25 | disposition home or self-care (01) | DRG 773 ==
LOC: YASAS 16:18 → Y3N 19:54
PROVIDERS: ADMIT Allergy & Immunology; ATTEND Allergy & Immunology
PROC: HZ2ZZZZ Detoxification Services for Substance Abuse Treatment (ICD-10-PCS; principal; 2024-12-11)
DX: F10.230 Alcohol dependence with withdrawal, uncomplicated (principal); F13.20 Sedative, hypnotic or anxiolytic dependence, uncomplicated; F11.20 Opioid dependence, uncomplicated; F14.20 Cocaine dependence, uncomplicated; F17.210 Nicotine dependence, cigarettes, uncomplicated; F39 Unspecified mood [affective] disorder; L02.411 Cutaneous abscess of right axilla; Z22.322 Carrier or suspected carrier of Methicillin resistant Staphylococcus aureus; Z86.19 Personal history of other infectious and parasitic diseases
CPT/HCPCS: 36415; 80053; 80307; 83036; 85027; 86780; 93005; 93010